=== PATIENT | female | born 1965 | race Caucasian/White ===

== ENCOUNTER 2019-02-06 06:00 | Outpatient (RCR) | payer MEDICARE, MEDICAID, SELFPAY | END 2019-03-08 00:01 | LOC: GPT 06:00 | PROVIDERS: Family Provider Family Medicine; Visit Provider Specialist | DX: M96.1 Postlaminectomy syndrome, not elsewhere classified (principal) | CPT/HCPCS: 97110 ×4; 97140 ×3; 97164; 97530 ×2; G0283 ×2 ==

== ENCOUNTER 2019-03-21 15:59 | Observation (INO) | payer MEDICARE, MEDICAID, SELFPAY ==
[2019-03-18 13:26] VITALS: BMI 31.6
[2019-03-21] VITALS (16 sets, daily range): BP systolic 112–148; BP diastolic 60–99; PULSE 70–96; RESP 12–20; TEMP 36.3–36.8; O2SAT 96–100
[2019-03-21] MEDS: sodium chloride 0.9% 1,000 ML 30 ML IV (08:26)
--- NOTE | 2019-03-21 08:31 | ANES.PREANES ---
Pre-Anesthetic Assessment Pre-Anesthetic Assessment: Height/Weight: Height 1.6 m Weight 81.193 kg Temp Resp BP Pulse Ox 97.4 F L 20 H 135/87 100 03/21/19 07:45 03/21/19 07:45 03/21/19 07:45 03/21/19 07:45 Preop Diagnosis: Pain pump dysftn Proposed Procedure: Operation Date: 03/21/19 09:50 Proposed Procedures p Pain Pump Removal(Not Applicable) - Oscar Lloyd MD Was Beta Kimmie taken within 24 hours: N/A Last intake: Intake Last Liquid Date 03/20/19 Last Liquid Time 23:30 Last Solid Date 03/20/19 Last Solid Time 18:00 Social: Social History: Tobacco Comment: quit 01/25 Pulmonary: Pulmonary: COPD Musc/skel: Musc/skel: Lower Back Pain Neuropsych: Neuropsych: Depression Anesthetic Plan: ASA status: III Anesthesia: MAC Meds/Allergies Current Medications: Current Medications Generic Name Dose Route Start Last Admin Trade Name Freq PRN Reason Stop Dose Admin Sodium Chloride 1,000 mls @ 30 ml s/hr 03/21/19 07:30 03/21/19 08:26 Sodium Chloride 0.9% IV 03/22/19 07:29 30 mls/hr .Q24H LEW Administration PFSH Anesthesia PFSH: Social History Smoking and tobacco status: former smoker Quit status (tobacco): has quit using tobacco Year quit tobacco: 2019 Alcohol intake: current Alcohol intake frequency: holidays/special occasions only Data Anesthesia Cardiac Studies: No Data to Display
--- NOTE | 2019-03-21 08:39 | ANES.PREANES ---
Pre-Anesthetic Assessment Pre-Anesthetic Assessment: Height/Weight: Height 1.6 m Weight 81.193 kg Temp Resp BP Pulse Ox 97.4 F L 20 H 135/87 100 03/21/19 07:45 03/21/19 07:45 03/21/19 07:45 03/21/19 07:45 Preop Diagnosis: Pain pump dysftn Proposed Procedure: Operation Date: 03/21/19 09:50 Proposed Procedures p Pain Pump Removal(Not Applicable) - Oscar Lloyd MD Last intake: Intake Last Liquid Date 03/20/19 Last Liquid Time 23:30 Last Solid Date 03/20/19 Last Solid Time 18:00 Social: Packs per day: 1.5 ppd45 years Comment: quit 3 days ago Airway: Dentition: False Pulmonary: Pulmonary: COPD Musc/skel: Musc/skel: Lower Back Pain Comments: left great than right radiculopathy Anesthetic Plan: ASA status: III Anesthesia: MAC Meds/Allergies Current Medications: Current Medications Generic Name Dose Route Start Last Admin Trade Name Freq PRN Reason Stop Dose Admin Sodium Chloride 1,000 mls @ 30 ml s/hr 03/21/19 07:30 03/21/19 08:26 Sodium Chloride 0.9% IV 03/22/19 07:29 30 mls/hr .Q24H LEW Administration PFSH Anesthesia PFSH: Social History Smoking and tobacco status: former smoker Quit status (tobacco): has quit using tobacco Year quit tobacco: 2019 Alcohol intake: current Alcohol intake frequency: holidays/special occasions only Data Anesthesia Cardiac Studies: No Data to Display
--- NOTE | 2019-03-21 11:25 | P.HPUD_ITS ---
H&P update H&P Update: DATE OF SURGERY/PROCEDURE: 03/21/19 DATE H&P PERFORMED: 10/26 H&P UPDATE INFORMATION: H&P completed within last 30 days and No changes to prior documentation PREOP DIAGNOSIS: Implanted intrathecal catrachita ter/pump PRIMARY INDICATION FOR PROCEDURE: pump failure PLANNED PROCEDURE: Operation Date: 03/21/19 09:50 Proposed Procedures Pain Pump/intrathecal catheter Removal Full H&P Medications/Allergies: Current Medications: Current Medications Generic Name Dose Route Start Last Admin Trade Name Freq PRN Reason Stop Dose Admin Sodium Chloride 1,000 mls @ 30 ml s/hr 03/21/19 07:30 03/21/19 08:26 Sodium Chloride 0.9% IV 03/22/19 07:29 30 mls/hr .Q24H LEW Administration Perinent History: Social History: Social History Smoking and tobacco status: former smoker Quit status (tobacco): has quit using tobacco Year quit tobacco: 2019 Alcohol intake: current Alcohol intake frequency: holidays/special occasions only
--- NOTE | 2019-03-21 12:11 | PM.OP2 ---
 Brief Operative Note: Date of procedure: 03/21/19 Pre-op diagnosis: Baclofen pump malfunction Post-op diagnosis: other (Same, with catheter disruption) Procedure Done: Removal of subcutaneous programmable pump and intrathecal catheter. Surgeon: Oscar Lloyd Estimated blood loss (mL): 10 Condition: stable Disposition: PACU Coding Level of Care Code Acute Novelty Maker for Lucia El
[2019-03-21] MEDS: neomycin-poly-bacitracin oint 28 gm 1 APPLIC TOPICAL (13:10)
--- NOTE | 2019-03-21 14:08 | SUR.PHASEI ---
1400 PT MOVED TO ISOLATION ROOM FOR HOLDING UNTIL ROOM AVAILABLE UPSTAIRS
[2019-03-21] MEDS: meperidine 50 mg/mL INJ 12.5 MG IVP ×2 (14:27→15:26)
--- NOTE | 2019-03-21 16:09 | P.PN_ITS ---
Subjective Subjective: Interval history: Doing OK. Vitals/I&O/Wt Last Vital Signs Temp 98 F 03/21/19 15:30 Pulse 71 03/21/19 15:30 Resp 18 03/21/19 15:30 BP 118/65 03/21/19 15:30 Pulse Ox 98 03/21/19 15:30 03/21/19 03/21/19 03/21/19 06:59 14:59 22:59 Intake Total 850 / 850 Output Total Balance 840 / 840 Physical Exam Const: GENERAL APPEARANCE: cooperative ORIENTATION/CONSCIOUSNESS: Yes awake Resp: COMMON NORMALS: normal respiratory effort EFFORT & INSPECTION: No stridor GI: COMMON NORMALS: soft to palpation PALPATION: Yes soft Neuro: COMMON NORMALS: moves all extremities Skin: WOUNDS: Yes surgical site (left abdomen and left lumbar paraspinal surgical site dressings intact. ) Details: drainage Details: serosanguineous (minimal) A&P Assessment and plan (1) Malfunction of intrathecal infusion pump: Doing well after baclofen pump and intrathecal catheter removal earlier today. Maintain bedrest overnight. Complete scheduled perioperative IV antibiotic doses. Increase HOB and activity in AM, as tolerated. Home when tolerating OOB. Status: Acute Code(s): T85.610A - Breakdown (mechanical) of cranial or spinal infusion catheter, initial encounter (2) Malposition of intrathecal infusion catheter: Status: Acute Code(s): T85.620A - Displacement of cranial or spinal infusion catheter, initial encounter (3) Cervical post-laminectomy syndrome: Status: Acute Code(s): M96.1 - Postlaminectomy syndrome, not elsewhere classified Attestations Medical Necessity Statement*: Patient is appropriate for in-hospital postop management after removal of an intrathecal catheter and subcutaneous pump. Coding Level of Care Code Acute Television Cameraman for Chg Fwd Exam Problem Focused Diagnoses Malfunction of intrathecal infusion pump T85.610A Malposition of intrathecal infusion catheter T85.620A Cervical post-laminectomy syndrome M96.1 Comment postop global visit
[2019-03-21] MEDS: ondansetron 2 mg/ML SDV 2 mL 4 MG IVP (16:31)
[2019-03-21] MEDS: baclofen 10 mg Tablet PO (17:30)
[2019-03-21] MEDS: lactated ringers 1,000 ML 90 ML IV (17:30)
[2019-03-21] MEDS: gabapentin 400 mg Capsule 800 MG PO ×2 (17:31→19:55)
[2019-03-21] MEDS: HYDROcodone-acetaminophen 5-325 mg Tablet PO ×2 (18:03→22:31)
[2019-03-21] MEDS: docusate sodium 100 mg Capsule PO (18:03)
[2019-03-21] MEDS: baclofen 10 mg Tablet 5 MG PO (19:55)
[2019-03-22] VITALS (7 sets, daily range): BP systolic 107–134; BP diastolic 70–79; PULSE 66–78; RESP 18–22; TEMP 36.5–36.7; O2SAT 96–98
[2019-03-22] MEDS: HYDROcodone-acetaminophen 5-325 mg Tablet PO ×3 (04:12→12:48)
[2019-03-22] MEDS: lactated ringers 1,000 ML 90 ML IV (04:15)
[2019-03-22] MEDS: pantoprazole DR 40 mg Tablet PO (08:16)
[2019-03-22] MEDS: escitalopram 10 mg Tablet PO (08:17)
[2019-03-22] MEDS: baclofen 10 mg Tablet 5 MG PO (08:17)
[2019-03-22] MEDS: gabapentin 400 mg Capsule 800 MG PO (08:17)
[2019-03-22] MEDS: topiramate 100 mg Tablet PO (08:17)
[2019-03-22] MEDS: docusate sodium 100 mg Capsule PO (08:17)
--- NOTE | 2019-03-22 15:07 | P.OP_ITS ---
Operative Report Date of procedure: 03/21/19 Procedure: DATE OF PROCEDURE: 03/21/2019 DATE OF DICTATION: 03/22/2019 PREOPERATIVE DIAGNOSES: 1. Cervical postlaminectomy syndrome. 2. Failure of implanted neurologic device (Medtronic subcutaneous programmable pump/intrathecal catheter system with suspected pump malfunction). POSTOPERATIVE DIAGNOSES: 1. Cervical postlaminectomy syndrome. 2. Failure of implanted neurologic device (Medtronic subcutaneous programmable pump/intrathecal catheter system with suspected pump malfunction). 3. Failure of implanted intrathecal catheter (catheter fracture). PROCEDURE PERFORMED: 1. Removal of subcutaneous programmable pump. 2. Removal of intrathecal catheter. SURGEON: Laura Lloyd M.D. ANESTHESIA: General. ESTIMATED BLOOD LOSS: 10 milliliters. INDICATIONS FOR PROCEDURE: The patient is a 54-year-old female with an intrathecal catheter and subcutaneous programmable pump. The device was implanted at an outside institution on June 15, 2017. She was referred by Dr. Hernandez due to concerns regarding device related complications and concerns t hat the risks of continued use of the device outweighed the benefits. The device had been programmed to a minimal output state, and the patient was placed on oral replacement baclofen. After radiographic evaluation of the device, options were reviewed, and the patient requested to proceed with surgical removal of the device components. She acknowledged understanding that complete removal of the catheter is not always feasible. DESCRIPTION OF PROCEDURE: After routine preoperative evaluation and informed consent were obtained, the patient was taken to the Operating Room and positioned supine on the operating table. Once adequate anesthesia was established, the patient was rotated into a right lateral decubitus position, supported by a beanbag. An axillary roll was positioned, and the upper extremities were supported. Prior left abdominal and left paraspinous lumbar incision sites were marked with a skin marker. The areas were scrubbed with Betadine and prepped widely with DuraPrep. Sterile towels and drapes were applied,and an [place] surgical barrier was placed. The proposed abdominal incision site was infiltrated with 1% Xylocaine with Epinephrine. A skin incision was made and carried down into the subcutaneous tissues. Self-retaining retractors were placed. The subcutaneous capsule containing the pump and pump/catheter interface was opened. No abnormal fluid collections were noted about the pump. The pump was delivered from the subcutaneous pocket. The pump - catheter interface was not intact, with catheter fracture evident just beyond the connection site. The pump was transferred to the back table in preparation for return to the manufacture and subsequent formal evaluation of suspected mechanical malfunction. The explanted device was a Medtronic SynchroMed II, 20 ml reservoir pump. The previously implanted intrathecal catheter demonstrated no spontaneous retrograde flow of fluid. The incision was copiously irrigated with sterile saline, and temporarily packed with an antibiotic soaked sponge. Attention was then turned to the lumbar site, which was infiltrated with 1% lidocaine with epinephrine. A skin incision was made and carried down into the subcutaneous tissues. The catheter, with attached anchor, was dissected free of the soft tissues. Beaumont sutures were released. Gentle traction delivered the intrathecal portion of the catheter intact. Gentle traction delivered a fractured short segment of catheter which was not in continuity with the distal abdominal catheter. Pursestring silk sutures were placed at the fascial penetration site of the intrathecal catheter, where a small amount of spinal fluid leakage was demonstrated following removal of the catheter. A Valsalva maneuver was initiated by Anesthesia personnel, with no persistent fluid leakage demonstrated following suture placement. The site was copiously irrigated with sterile saline. Gentle traction was applied to the retained distal catheter at the abdominal incision site. Adhesions prevented complete removal of the catheter, which fractured during removal, leaving an unspecified segment of the catheter within the subcutaneous space. (Records regarding initial catheter length were not immediately available at the time of surgery.) Adding the lengths of the explanted catheter fragments resulted in a total of approximately 86 cm of catheter that was removed. A Session Report dated 09/03/2017 was obtained. It indicated a total implanted catheter length of 106.7cm, suggesting 20.7 cm of retained catheter. Both incision sites were copiously irrigated with sterile saline and antibiotic irrigation. The retained fibrous capsule at the pump explant site was closed on itself with interrupted 2-0 Vicryl Plus sutures. The superficial fascia and deep dermis were closed at both incision sites with 2-0 Vicryl Plus simple interrupted sutures. Final skin closure was obtained at the abdominal site with running, subcuticular 3-0 Vicryl Plus. Interrupted 3-0 nylon was utilized at the lumbar site. Steri-Strips and a sterile dressing were applied at the abdominal site. Antibiotic ointment and a sterile dressing were applied at the lumbar site. The patient was rotated into the supine position and transferred onto the Recovery Room cart. The patient tolerated the procedure well. She was transferred to the postanesthesia care unit for routine management and monitoring, when deemed appropriate by Anesthesia personnel. COMPLICATIONS: There were no known complications. COUNTS: All sponge, needle and instrument counts were correct at the completion of the procedure.
--- NOTE | 2019-03-22 15:13 | PC.CHAP ---
Pastoral Care Encounter/Spiritual Assessment Type of Contact [] Declined operator automated process visit [] Patient/Family/Request visit [] Outpatient visit [x] Follow-up visit [] Physician referral [] Code/Alert [] Routine visit [] Staff referral [] Actively dying [x] Patient sleeping [] Family support [] [] Out of room [] Palliative care [] [] Receiving care in room [] Pre-surgical visit [] Trauma [] Long length of stay [] ICU visit [] Other: Relational/Emotional Strength [] Patient feels connected with others/family/visitors/staff [] Distress [] Loneliness/isolation [] Abandonment Spirituality of Patient [] Person of Kristel [] Attends Congregation of their Kristel [] Believes in Prayer [] Reads Bible or Worship materials [] There are Spiritual issues to be addressed Regional Guide Interventions [] Prayer [] Active listening [] Non-anxious presence [] Spiritual/emotional support [] Crisis/trauma care [] Spiritual counseling [] Bereavement support [] Provided bereavement packet [] Provided Bible/devotional materials [] Provided toy/stuffed animal, coloring book to patient or family member [] Completed spiritual assessment [] Provided Communion [] Anointing/[place] [] Salvation [] Other: Impact on Illness or Injury [] Angry [] Fearful [] Anxious [] Often cries [] Exhaustion [] Unable to work [] Unable to attend rastafari [] Unable to walk/stand [] Unable to read [] Unable to drive [] Unable to eat/drink [] Unable to sleep [] Unable to be with family [] Other: Summary patient asleep needs follow up d[place] yang Time spent with patient
--- NOTE | 2019-03-22 18:06 | P.DS_ITS ---
Discharge Providers Date of Admission: 03/21/19 15:59 Date of Discharge: Date of Discharge: March 22, 2019 Attending Provider at Admission: Oscar Lloyd MD Attending Provider at Discharge: Oscar Lloyd MD Primary Care Provider: Ted Willoughby DO Diagnoses at Discharge Discharge Diagnosis (1) Malfunction of intrathecal infusion pump: Status: Acute Problem details: Patient is doing well after removal of subcutaneous programmable pump and intrathecal catheter yesterday. She has tolerated diet and up OOB today. Plan discharge home today. (2) Malposition of intrathecal infusion catheter: Status: Acute (3) Cervical post-laminectomy syndrome: Status: Acute Reason for Visit Reason for Visit: Reason For Visit: Presence of Intrathecal Baclofen Pump Brief History: The patient is a 54-year-old female with an intrathecal catheter and subcutaneous programmable pump. The device was implanted at an outside institution on June 15, 2017. She was referred by Dr. Hernandez due to concerns regarding device related complications and concerns that the risks of continued use of the device outweighed the benefits. The device had been programmed to a minimal output state, and the patient was placed on oral replacement baclofen. After radiographic evaluation of the device, options were reviewed, and the patient requested to proceed with surgical removal of the device components. She acknowledged understanding that complete removal of the catheter is not always feasible. Hospital Course Hospital Course: The patient underwent removal of subcutaneous, programmable pump and intrathecal catheter on 03/21/2019. A short segment of the catheter was retained within the left lateral abdominal subcutaneous space due to catheter fracture during attempted removal. The retained catheter segment was estimated at 20.7 cm based on implantation records and measurement of explanted catheter fragments. She had minimal CSF leakage at the lumbodorsal fascia catheter exit site following catheter removal. Following silk pursestring suture placement, no leakage was demonstrated even with Anesthesia administered Valsalva. She tolerated the procedure well. She was maintained flat in bed at bedrest overnight. HOB was gradually elevated, and she was allowed up OOB after noon on POD#1. She completed perioperative intravenous antibiotic doses. She was voiding, tolerating regular diet, and ambulatory prior to discharge home on postoperative day #1. She had no evidence of postop CSF leakage at the lumbar incision site. Physical Exam Const: COMMON NORMALS: no apparent distress GENERAL APPEARANCE: cooperative and comfortable Neck/C-Spine: COMMON NORMALS: supple Resp: COMMON NORMALS: normal respiratory effort EFFORT & INSPECTION: Yes able to speak in complete sentences and No stridor GI: GI image (female): 1. surgical incision Back/Pelvis: BACK IMAGE (FEMALE): 1. surgical incision Neuro: COMMON NORMALS: moves all extremities GAIT: Yes other (ambulates unassisted) Psych: COMMON NORMALS: speech normal ATTITUDE: Yes calm and Yes engaged SPEECH: Yes normal speech MOOD & AFFECT: Yes euthymic mood INSIGHT: insight good JUDGEMENT: judgment good Skin: WOUNDS: Yes surgical site (surgical site dressings clean/dry/intact) Discharge Data Data Completed and Pending: Completed Studies During Hospitalization Category Date Time Status Pathology: Surgic al [PTH] Routine Pth 03/21/19 14:08 Completed Vitals: Last Vital Signs Temp 97.9 F 03/22/19 12:50 Pulse 78 03/22/19 11:02 Resp 22 H 03/22/19 12:50 BP 134/79 03/22/19 11:02 Pulse Ox 97 03/22/19 12:50 Discharge Plan Discharge Patient Disposition: Home, Self-Care Condition: Stable Prescriptions: New hydrocodone-acetaminophen 5-325 mg Tablet 1 - 2 tab PO Q4H PRN (Reason: Moderate To Severe Pain) Qty: 40 RF: 0 Continued gabapentin 800 mg tablet 800 mg PO QID RF: 0 ibuprofen 200 mg capsule 400 mg PO QID PRN (Reason: Pain) RF: 0 albuterol sulfate 2.5 mg /3 mL (0.083 %) solution for nebulization 2.5 mg INHALATION Q6H RF: 0 fluticasone propion-salmeterol [Advair Diskus] 250-50 mcg/dose blister with device 1 inh INHALATION BID RF: 0 baclofen 10 mg tablet 5 mg PO QID RF: 0 escitalopram oxalate [Lexapro] 10 mg tablet 10 mg PO DAILY RF: 0 topiramate [Topamax] 100 mg tablet 100 mg PO DAILY RF: 0 acetaminophen [Tylenol 8 Hour] 650 mg tablet extended release 650 mg PO .every 4 hours PRN (Reason: Dyspnea) RF: 0 Premarin 0.625 mg/gram cream 0.625 mg VAGINAL .twice a week RF: 0 omeprazole 20 mg Capsule,Delayed Release(Dr/Ec) 20 mg PO DAILY RF: 0 No Action tramadol 50 mg tablet 50 mg PO TID PRN (Reason: pain) Qty: 50 RF: 0 Discharge Orders: Discharge Order (Routine); Ordered 03/22/19 Ordered By: Oscar Lloyd Referrals: Oscar Lloyd MD [Physician] - 2 weeks (Please see Dr Lloyd on Apr 05 at 2:00) Patient Instructions: Hydrocodone/Acetaminophen (By mouth), Cervical Spinal Stenosis (DC) Activity Restrictions/Additional Instructions: Activity - No driving until office followup visit - No lifting/pushing/pulling over 10 pounds - Avoid twisting or bending - Walking is encouraged - Home exercise per physical therapist - You may engage in sexual intercourse at any time as long as it is comfortable for you - Check with your doctor before returning to work. Notify your doctor if you develop: - temperature of 101.5 degrees F. or higher - redness or swelling of the incision - Foul drainage - increasing pain - increasing numbness or tingling in the arms or legs - New or increasing problems with vision, balance, memory, speaking, nausea or vomiting Hygiene: - Showering is okay - No tub baths or soaking Other: Remove outer bandage 3 days after surgery. If you have paper strips, leave in place until they fall off on their own. If you have stitches, keep your incision dry until the stitches are removed. Your doctor's office is available to answer any questions from 7 AM to 5:00 PM, Thursday through at [phone]. After hours, go to the emergency room at [facility] or call 911 for assistance. Discharge Date/Time: 03/22/19 15:00 Discharge Attestations Time Spent in Discharge Care*: other (postop global) Quality Metrics Clinical Quality Measures During this hospital stay, did patient experience: None Coding Level of Care Code Acute Photography And Prints Curator for Chg Fwd Exam Problem Focused Diagnoses Malfunction of intrathecal infusion pump T85.610A Malposition of intrathecal infusion catheter T85.620A Cervical post-laminectomy syndrome M96.1 Comment postop global
== END 2019-03-22 15:00 | disposition home or self-care (01) ==
LOC: MEDSURG 16:00
PROVIDERS: Admitting Provider Specialist; Family Provider Family Medicine; PCP Family Medicine; Visit Provider Specialist
PROC: (CPT 62365; principal; 2019-03-21 09:50)
DX: T85.610A Breakdown (mechanical) of cranial or spinal infusion catheter, initial encounter (principal); T85.620A Displacement of cranial or spinal infusion catheter, initial encounter; M96.1 Postlaminectomy syndrome, not elsewhere classified; F17.210 Nicotine dependence, cigarettes, uncomplicated; Z82.49 Family history of ischemic heart disease and other diseases of the circulatory system; Z83.3 Family history of diabetes mellitus; Z79.1 Long term (current) use of non-steroidal anti-inflammatories (NSAID); Z79.891 Long term (current) use of opiate analgesic; J44.9 Chronic obstructive pulmonary disease, unspecified
CPT/HCPCS: 62365; 12345; 88300; 94640; 96361; 96365; 96375; G0378; J0690; J2001; J2175; J2405; J2704; J3010; J3490; J7030

== ENCOUNTER → 2019-05-04 14:59 | Outpatient (BNVA) | payer MEDICARE, MEDICAID, SELFPAY | PROVIDERS: Family Provider Family Medicine; PCP Family Medicine; Visit Provider Specialist | DX: G62.9 Polyneuropathy, unspecified (principal); M54.12 Radiculopathy, cervical region; F17.210 Nicotine dependence, cigarettes, uncomplicated | CPT/HCPCS: 99214 ==

== ENCOUNTER 2019-05-09 06:00 | Outpatient (RCR) | payer MEDICARE, MEDICAID, SELFPAY | END 2019-06-07 23:59 | disposition home or self-care (01) | LOC: GPT 06:00 | PROVIDERS: Family Provider Family Medicine; PCP Family Medicine; Referring Provider Family Medicine; Visit Provider Family Medicine | DX: G89.4 Chronic pain syndrome (principal); M96.1 Postlaminectomy syndrome, not elsewhere classified | CPT/HCPCS: 97110; 97140; 97162; 97530; G0283 ==

== ENCOUNTER → 2019-05-12 08:19 | Outpatient (BNVA) | payer MEDICARE, MEDICAID, SELFPAY | PROVIDERS: Family Provider Family Medicine; PCP Family Medicine; Visit Provider Specialist | DX: M79.605 Pain in left leg (principal); M79.604 Pain in right leg; F17.210 Nicotine dependence, cigarettes, uncomplicated | CPT/HCPCS: 95909 ==

== ENCOUNTER 2019-05-24 06:00 | Outpatient (RCR) | payer MEDICARE, MEDICAID, SELFPAY | END 2019-06-07 23:59 | disposition home or self-care (01) | LOC: GOT 06:00 | PROVIDERS: Family Provider Family Medicine; PCP Family Medicine; Referring Provider Nurse Practitioner Family; Visit Provider Nurse Practitioner Family | DX: G89.4 Chronic pain syndrome (principal); M96.1 Postlaminectomy syndrome, not elsewhere classified | CPT/HCPCS: 97167 ==

== ENCOUNTER 2019-06-08 06:00 | Outpatient (RCR) | payer MEDICARE, MEDICAID, SELFPAY | END 2019-07-07 23:59 | disposition home or self-care (01) | LOC: GPT 06:00 | PROVIDERS: Family Provider Family Medicine; PCP Family Medicine; Referring Provider Family Medicine; Visit Provider Family Medicine | DX: G62.9 Polyneuropathy, unspecified (principal) | CPT/HCPCS: 97110; 97140; 97164; 97530; G0283 ==

== ENCOUNTER 2019-06-08 06:00 | Outpatient (RCR) | payer MEDICARE, MEDICAID, SELFPAY | END 2019-07-07 23:59 | disposition home or self-care (01) | LOC: GOT 06:00 | PROVIDERS: Family Provider Family Medicine; PCP Family Medicine; Referring Provider Nurse Practitioner Family; Visit Provider Nurse Practitioner Family | DX: M76.822 Posterior tibial tendinitis, left leg (principal) | CPT/HCPCS: 97110; 97140; G0283 ==

== ENCOUNTER → 2019-06-15 08:28 | Outpatient (BNVA) | payer MEDICARE, MEDICAID, SELFPAY | PROVIDERS: Family Provider Family Medicine; PCP Family Medicine; Referring Provider Specialist; Visit Provider Podiatrist Foot & Ankle Surgery | DX: M25.572 Pain in left ankle and joints of left foot (principal); S82.892A Other fracture of left lower leg, initial encounter for closed fracture; X58.XXXA Exposure to other specified factors, initial encounter; M21.42 Flat foot [pes planus] (acquired), left foot; M76.822 Posterior tibial tendinitis, left leg; N39.0 Urinary tract infection, site not specified | CPT/HCPCS: 73610; 80053; 81000; 81003; 87077; 87086; 87186; L1902 ==

== ENCOUNTER 2019-06-15 11:08 | Outpatient (CLI) | payer MEDICARE, MEDICAID, SELFPAY | END 2019-06-15 11:09 | disposition home or self-care (01) | LOC: SPT 11:09 | PROVIDERS: Family Provider Family Medicine; PCP Family Medicine; Visit Provider Podiatrist Foot & Ankle Surgery | DX: M76.822 Posterior tibial tendinitis, left leg (principal) | CPT/HCPCS: 80053; 81000; 81003; 87077; 87086; 87186; L1902 ==

== ENCOUNTER 2019-06-23 08:52 | Outpatient (CLI) | payer MEDICARE, MEDICAID, SELFPAY ==
--- NOTE | 2019-06-23 08:59 | IR_ITS ---
WS: [id number] CERVICAL MYELOGRAM HISTORY: cervical pain COMPARISON: None available. FLUOROSCOPY TIME: 1.6 minutes. Procedure, risks and complications were explained to the patient. Risks including bleeding, infection , headaches, allergic reaction and seizures. Consent has been obtained. With the patient in prone position the skin over the lumbar region is cleansed with ChloraPrep and an esthetized with lidocaine. 22-gauge spinal needle is inserted into the thecal sac at the appropriate level determined by fluoroscopy. Omnipaque 300; 12 ml is injected slowly under fluoroscopy with no co mplications. Needle bevel is perpendicular to the longitudinal fibers of the dura. Stylet is reinsert ed prior to removal of the needle. Patient tolerated the procedure well. Patient will proceed to CT f or further evaluation. Uncomplicated injection into the thecal sac. Straightening and reversal normal cervical lordosis centered at C5-C7. Interbody spacers at C5-6 and C6-7. No lucency around the hardware. Anterior cervical plate abuts and is eroding into the anterior inferior endplate of C4. Due to the prior study. C3 anterolisthesis by 1.9 mm. Increases to 2.8 mm during flexion and decreases to 1.0 mm during exten dominic. No fracture. Prior cholecystectomy. IR/[place] myel[place] cervical [id number] IMPRESSION: 1. Straightening and slight reversal normal cervical lordosis centered at C4-5 . 2. Prior cervical fusion with interbody grafting at C5-C7. No change in appear ance of the hardware or fusion. 3. Very mild instability of the C3 vertebral body with flexion and extension.
--- NOTE | 2019-06-23 08:59 | CT_ITS ---
WS: [id number] CT CERVICAL MYELOGRAM HISTORY: cervical pain Technique: All CT scans at [facility] use at least one of these dose optimization techniq ues: automated exposure control; mA and/or kV adjustment per patient size (includes targeted exams wh ere dose is matched to clinical indication); or iterative reconstruction. DLP: 690.2 mGy.cm COMPARISON: 10/19/2018 Good opacification of thecal sac with contrast. Prior anterior cervical fusion extends from C5 through C7. Interbody grafts at C5-6 and C6-7. There i s mild subsidence of the graft, greatest involving the C6-7 grafts. Similar to the prior study. No samantha cency around the hardware. No hardware fracture. The anterior superior fusion plate abuts the C4 vert ebral body. Moderate disc space narrowing at C4-5. C3 anterolisthesis by 2 mm is unchanged. C1-C2: Normal. C2-C3: Moderate LEFT facet joint arthritis with mild LEFT foraminal narrowing. C3-C4: Moderate to severe LEFT facet joint arthritis similar to the prior study. Mild annular disc bu lging and osteophytic ridging of the vertebral body. Mild central stenosis with moderate to severe LE FT foraminal stenosis. Similar to the prior study. C4-C5: LEFT facet joint arthritis. Mild osteophytic ridging with mild encroachment upon the ventral t hecal sac. Slightly greater stenosis centrally with mild LEFT foraminal stenosis. C5-C6: Osteophytic ridging with encroachment and contact on the ventral cord. Mild central stenosis w ith moderate LEFT and mild RIGHT foraminal stenosis. C6-C7: Diffuse osteophytic ridging with disc osteophyte contacting the ventral thecal sac. Mild centr al stenosis with moderate LEFT and mild RIGHT foraminal stenosis. C7-T1: Mild osteophytic ridging. Mild LEFT foraminal stenosis due to osteophyte disease. Paravertebral soft tissues are normal. CT/CT cervical spine w con [id number] IMPRESSION: 1. Prior anterior cervical fusion with interbody graft fusion at C5-6 and C6-7 . No interval change. No bony bridging across the fusion. 2. Anterior fusion plate abuts the C4 vertebral body. 3. Mild subsidence of the C6-7 disc is unchanged. 4. Moderate to severe LEFT foraminal stenosis at C3-4 unchanged. 5. Mild central stenosis and LEFT foraminal stenosis at C4-5. Central stenosis has increased since the prior study. 6. Moderate LEFT foraminal stenosis at C5-6 with mild central and RIGHT forami nal stenosis. 7. Moderate LEFT foraminal stenosis at C6-7 with mild central and RIGHT forami nal stenosis.
[2019-06-23] MEDS: iohexol 300 mg/mL 50 mL Btl IV (10:37)
== END 2019-06-23 08:53 | disposition home or self-care (01) ==
PROVIDERS: Family Provider Family Medicine; PCP Family Medicine; Visit Provider Specialist
DX: M54.2 Cervicalgia (principal); M43.22 Fusion of spine, cervical region; M48.02 Spinal stenosis, cervical region
CPT/HCPCS: 62302; 72040; 72126

== ENCOUNTER → 2019-07-06 13:03 | Outpatient (BNVA) | payer MEDICARE, MEDICAID, SELFPAY | PROVIDERS: Family Provider Family Medicine; PCP Family Medicine; Referring Provider Specialist; Visit Provider Anesthesiology Pain Medicine | DX: M54.2 Cervicalgia (principal); M79.18 Myalgia, other site; F17.210 Nicotine dependence, cigarettes, uncomplicated | CPT/HCPCS: 20553; 99204; J1030; J3490 ==

== ENCOUNTER 2019-07-08 06:00 | Outpatient (RCR) | payer MEDICARE, MEDICAID, SELFPAY | END 2019-08-07 23:59 | disposition home or self-care (01) | LOC: GPT 06:00 | PROVIDERS: PCP Family Medicine; Referring Provider Family Medicine; Visit Provider Family Medicine | DX: G62.9 Polyneuropathy, unspecified (principal) | CPT/HCPCS: 97032; 97110; 97112; 97140; 97530; G0283 ==

== ENCOUNTER → 2019-07-22 10:20 | Outpatient (BNVA) | payer MEDICARE, MEDICAID, SELFPAY | PROVIDERS: Family Provider Family Medicine; PCP Family Medicine; Visit Provider Anesthesiology Pain Medicine | DX: M50.020 Cervical disc disorder with myelopathy, mid-cervical region, unspecified level (principal); F17.210 Nicotine dependence, cigarettes, uncomplicated; Z79.891 Long term (current) use of opiate analgesic | CPT/HCPCS: 62321; J1100; J2001 ==

== ENCOUNTER 2019-08-04 13:28 | Outpatient (CLI) | payer MEDICARE, MEDICAID, SELFPAY ==
--- NOTE | 2019-08-04 13:47 | CT_ITS ---
WS: [id number] CT LUNG CANCER SCREENING DLP: 82.12 mGy.cm DIvol: 2.56 mGy CLINICAL INFORMATION SCREENING VISIT: Baseline COMPARISON: None available. FINDINGS Diagnostic quality: Satisfactory Comments: None. Lung Nodules: Subsegmental nodule posterior RIGHT lung apex measures 4 mm, image 35 of series 3. Ther e is an additional subsolid, groundglass nodule measuring 4 mm at the LEFT apex, image 45 of series 3 . No endobronchial lesions. Benign granuloma at the lingula. Lungs: No pneumonia. Heart: Normal size heart. Other findings: Benign partially calcified lymph nodes at the LEFT hilum. Normal size aorta and pulmo nary artery. Small hiatal hernia. Hepatic steatosis. CT/CT lung screening [id number] IMPRESSION: LUNG-RADS: 2-Benign Appearance or Behavior FOLLOW UP: 12 Month: Continue annual screening with LDCT
== END 2019-08-04 13:29 | disposition home or self-care (01) ==
LOC: RAD 13:34
PROVIDERS: PCP Family Medicine; Visit Provider Nurse Practitioner Family
DX: Z12.2 Encounter for screening for malignant neoplasm of respiratory organs (principal); Z87.891 Personal history of nicotine dependence; K44.9 Diaphragmatic hernia without obstruction or gangrene; K76.0 Fatty (change of) liver, not elsewhere classified
CPT/HCPCS: G0297

== ENCOUNTER → 2019-08-11 10:06 | Outpatient (BNVA) | payer BC, MEDICAID, SELFPAY | PROVIDERS: PCP Family Medicine; Visit Provider Anesthesiology Pain Medicine | DX: M54.2 Cervicalgia (principal); M62.830 Muscle spasm of back; F17.210 Nicotine dependence, cigarettes, uncomplicated; Z79.891 Long term (current) use of opiate analgesic | CPT/HCPCS: 99213; 99214 ==

== ENCOUNTER → 2019-08-16 14:21 | Outpatient (BNVA) | payer BC, MEDICAID, SELFPAY | PROVIDERS: PCP Family Medicine; Visit Provider Anesthesiology Pain Medicine | DX: M50.020 Cervical disc disorder with myelopathy, mid-cervical region, unspecified level (principal); F17.210 Nicotine dependence, cigarettes, uncomplicated; Z79.891 Long term (current) use of opiate analgesic | CPT/HCPCS: 62321; J1100; J2001 ==

== ENCOUNTER → 2019-08-19 10:26 | Outpatient (BNVA) | payer BC, MEDICAID, SELFPAY | PROVIDERS: PCP Family Medicine; Visit Provider Psychiatry & Neurology Psychiatry | DX: F33.9 Major depressive disorder, recurrent, unspecified (principal); F34.9 Persistent mood [affective] disorder, unspecified; F43.29 Adjustment disorder with other symptoms; F11.23 Opioid dependence with withdrawal; F12.20 Cannabis dependence, uncomplicated | CPT/HCPCS: 99205 ==

== ENCOUNTER 2019-08-23 09:21 | Outpatient (CLI) | payer MEDICARE, MEDICAID, SELFPAY ==
--- NOTE | 2019-08-23 09:27 | US_ITS ---
WS: [id number] Right breast ultrasound, 08/23/2019 Clinical Data: RT BREAST NODULE Comparison: Right breast ultrasound, 07/05/2015. Findings: There were no cysts or masses in the right upper quadrant of the right breast at site of the patient' s nodule. Only normal breast tissue could be seen. US/US breast RT limited* [id number] Impression: Negative right breast ultrasound BIRADS: 1-Negative FOLLOW UP: 1 Year Follow-up
--- NOTE | 2019-08-23 10:00 | MM_ITS ---
WS: [id number] Bilateral diagnostic digital mammogram, 08/23/2019 Clinical Data: nodule Comparison: 11/10/2017, 06/11/2015. Findings: There is a marker in the upper outer quadrant right breast. However no cysts, masses or abnormal calc ifications are seen. The breast parenchymal pattern shows fat replacement. The left breast is normal. There is no change from the prior mammogram. MM/[place] [id number] Impression: Negative bilateral mammograms unchanged. BIRADS: 1-Negative FOLLOW UP: 1 Year Follow-up The CAD amusement or recreation card checker was used.
== END 2019-08-23 09:22 | disposition home or self-care (01) ==
LOC: RADSHAW 09:25
PROVIDERS: PCP Family Medicine; Visit Provider Nurse Practitioner Family
DX: Z80.3 Family history of malignant neoplasm of breast (principal); N63.11 Unspecified lump in the right breast, upper outer quadrant
CPT/HCPCS: 76642; 77066

== ENCOUNTER → 2019-09-05 08:54 | Outpatient (BNVA) | payer MEDICARE, MEDICAID, SELFPAY | PROVIDERS: PCP Family Medicine; Visit Provider Anesthesiology Pain Medicine | DX: M54.12 Radiculopathy, cervical region (principal); M47.812 Spondylosis without myelopathy or radiculopathy, cervical region; M96.1 Postlaminectomy syndrome, not elsewhere classified; M79.18 Myalgia, other site; T85.610A Breakdown (mechanical) of cranial or spinal infusion catheter, initial encounter; X58.XXXA Exposure to other specified factors, initial encounter; Z98.1 Arthrodesis status; Z79.891 Long term (current) use of opiate analgesic | CPT/HCPCS: 20553; 99213; J1030; J3490 ==

== ENCOUNTER → 2019-09-15 07:58 | Outpatient (BNVA) | payer MEDICARE, MEDICAID, SELFPAY | PROVIDERS: PCP Family Medicine; Visit Provider Nurse Practitioner Psychiatric/Mental Health | DX: F33.9 Major depressive disorder, recurrent, unspecified (principal); Z68.30 Body mass index [BMI] 30.0-30.9, adult; F43.29 Adjustment disorder with other symptoms | CPT/HCPCS: 80053; 80061; 84443; 99213 ==

== ENCOUNTER 2019-10-04 10:33 | Outpatient (CLI) | payer MEDICARE, MEDICAID, SELFPAY ==
--- NOTE | 2019-10-04 11:30 | XR_ITS ---
WS: [id number] DEXA (DUAL ENERGY X-RAY ABSORPTIOMETRY) Bone mineral density was performed using a netTALK machine. HISTORY: post menopausal COMPARISON: None available. Lumbar spine BMD (L1-L4): 1.040 g/cm2 T score: -1.2 Z score: -0.7 Total hip BMD: Left: 1.082 g/cm2. T score: 0.6 Z score: 1.0 Right: 1.090 g/cm2. T score: 0.7 Z score: 1.1 10 year probability of a major osteoporotic fracture is 10%. XR/XR DEXA axial skeleton* [id number] IMPRESSION: Osteopenia based upon the WHO classification for females.
== END 2019-10-04 10:34 | disposition home or self-care (01) ==
PROVIDERS: Family Provider Family Medicine; PCP Family Medicine; Visit Provider Nurse Practitioner Family
DX: M54.12 Radiculopathy, cervical region (principal); M47.812 Spondylosis without myelopathy or radiculopathy, cervical region; M96.1 Postlaminectomy syndrome, not elsewhere classified; T85.610A Breakdown (mechanical) of cranial or spinal infusion catheter, initial encounter; X58.XXXA Exposure to other specified factors, initial encounter; F17.210 Nicotine dependence, cigarettes, uncomplicated; Z98.1 Arthrodesis status; Z78.0 Asymptomatic menopausal state
CPT/HCPCS: 77080; 99214

== ENCOUNTER → 2019-10-07 10:00 | Outpatient (BNVA) | payer BC, MEDICAID, SELFPAY | PROVIDERS: Family Provider Family Medicine; PCP Family Medicine | DX: Z20.828 Contact with and (suspected) exposure to other viral communicable diseases (principal); J45.20 Mild intermittent asthma, uncomplicated; F17.200 Nicotine dependence, unspecified, uncomplicated | CPT/HCPCS: 87635 ==

== ENCOUNTER → 2019-10-14 13:19 | Outpatient (BNVA) | payer BC, MEDICAID, SELFPAY | PROVIDERS: PCP Family Medicine; Visit Provider Anesthesiology Pain Medicine | DX: M47.812 Spondylosis without myelopathy or radiculopathy, cervical region (principal); F17.210 Nicotine dependence, cigarettes, uncomplicated | CPT/HCPCS: 64490; 64491; 64492; J3490 ==

== ENCOUNTER → 2019-11-10 07:19 | Outpatient (BNVA) | payer BC, MEDICAID, SELFPAY | PROVIDERS: PCP Family Medicine; Visit Provider Nurse Practitioner Psychiatric/Mental Health | DX: F33.9 Major depressive disorder, recurrent, unspecified (principal); F43.29 Adjustment disorder with other symptoms | CPT/HCPCS: 99212 ==

== ENCOUNTER → 2019-11-21 13:48 | Outpatient (BNVA) | payer BC, MEDICAID, SELFPAY | PROVIDERS: PCP Family Medicine; Visit Provider Anesthesiology Pain Medicine | DX: M47.812 Spondylosis without myelopathy or radiculopathy, cervical region (principal) | CPT/HCPCS: 64490; 64491; 64492; J3490 ==

== ENCOUNTER → 2019-12-12 09:47 | Outpatient (BNVA) | payer BC, MEDICAID, SELFPAY | PROVIDERS: PCP Family Medicine; Visit Provider Anesthesiology Pain Medicine | DX: G89.29 Other chronic pain (principal); M47.812 Spondylosis without myelopathy or radiculopathy, cervical region; M50.020 Cervical disc disorder with myelopathy, mid-cervical region, unspecified level; M43.12 Spondylolisthesis, cervical region; M54.12 Radiculopathy, cervical region; M54.5 Low back pain; M96.1 Postlaminectomy syndrome, not elsewhere classified; T85.610A Breakdown (mechanical) of cranial or spinal infusion catheter, initial encounter; X58.XXXA Exposure to other specified factors, initial encounter; G62.9 Polyneuropathy, unspecified; Z98.1 Arthrodesis status; F17.210 Nicotine dependence, cigarettes, uncomplicated | CPT/HCPCS: 99213; 99214 ==

== ENCOUNTER → 2019-12-26 13:03 | Outpatient (BNVA) | payer MEDICARE, MEDICAID, SELFPAY | PROVIDERS: PCP Family Medicine; Visit Provider Anesthesiology Pain Medicine | DX: M47.812 Spondylosis without myelopathy or radiculopathy, cervical region (principal) | CPT/HCPCS: 64633; 64634; J1030 ==

== ENCOUNTER → 2020-01-09 08:41 | Outpatient (BNVA) | payer MEDICARE, MEDICAID, SELFPAY | PROVIDERS: PCP Family Medicine; Visit Provider Anesthesiology Pain Medicine | DX: G89.29 Other chronic pain (principal); M47.812 Spondylosis without myelopathy or radiculopathy, cervical region; M50.020 Cervical disc disorder with myelopathy, mid-cervical region, unspecified level; M43.12 Spondylolisthesis, cervical region; M54.12 Radiculopathy, cervical region; G62.9 Polyneuropathy, unspecified; M96.1 Postlaminectomy syndrome, not elsewhere classified; T85.610A Breakdown (mechanical) of cranial or spinal infusion catheter, initial encounter; X58.XXXA Exposure to other specified factors, initial encounter; F17.210 Nicotine dependence, cigarettes, uncomplicated; Z98.1 Arthrodesis status | CPT/HCPCS: 99213 ==

== ENCOUNTER → 2020-01-12 07:40 | Outpatient (BNVA) | payer BC, MEDICAID, SELFPAY | PROVIDERS: PCP Family Medicine; Visit Provider Nurse Practitioner Psychiatric/Mental Health | DX: F33.9 Major depressive disorder, recurrent, unspecified (principal); F43.29 Adjustment disorder with other symptoms | CPT/HCPCS: 99212 ==

== ENCOUNTER → 2020-02-06 11:20 | Outpatient (BNVA) | payer MEDICARE, MEDICAID, SELFPAY | PROVIDERS: PCP Family Medicine; Visit Provider Nurse Practitioner Family | DX: K59.00 Constipation, unspecified (principal) | CPT/HCPCS: 74018 ==

== ENCOUNTER 2020-02-06 13:48 | Emergency (ER) | payer MEDICARE, MEDICAID, SELFPAY ==
[2020-02-06 14:13] VITALS: BP 119/86; PULSE 65; RESP 14; TEMP 36.6; O2SAT 98
[2020-02-06 15:00] VITALS: BP 168/86; PULSE 59; RESP 16; O2SAT 92
[2020-02-06 16:28] VITALS: BMI 29.2
[2020-02-06 17:15] LABS: Basophils % 0.5 %; Eosinophils # 0.1 10^3/uL (0.0-0.8); Eosinophils % 1.6 %; Hematocrit 41.1 % (37.0-47.0); Hemoglobin 13.6 g/dL (11.5-15.3); Lymphocytes # 2.7 10^3/uL (0.8-4.8); Lymphocytes % 46.4 %; Mean Corpuscular HGB Conc 33.1 g/dL (30.0-36.0); Mean Corpuscular Hemoglobin 32.4 pg (28.0-34.0); Mean Corpuscular Volume 97.9 fL (81-99); Mean Platelet Volume 10.5 fL (7.4-10.4); Monocytes # 0.4 10^3/uL (0.2-0.9); Monocytes % 6.8 %; Neutrophils # 2.53 10^3/uL (1.8-7.7); Neutrophils % 44.3 %; Nucleated Red Blood Cells % 0 %; Platelet Count 211 10^3/cmm (130-400); Red Cell Distribution Width 12.1 % (12.1-15.1); White Blood Count 5.7 10^3/uL (4.0-10.0)
[2020-02-06] MEDS: morphine 4 mg/mL SDV 1 mL 2 MG IVP (17:20)
[2020-02-06] MEDS: ketorolac 30 mg/mL INJ IVP (17:20)
[2020-02-06] MEDS: orphenadrine 30 mg/mL Inj 2 mL 60 MG IVP (17:20)
[2020-02-06 18:03] LABS: Alanine Aminotransferase 27 U/L (0-33); Albumin Level 4.7 g/dL (3.5-5.2); Alkaline Phosphatase 87 IU/L (35-105); Anion Gap 12.8 (5-19); Aspartate Amino Transferase 19 U/L (0-32); Blood Urea Nitrogen 10 mg/dL (6-20); Calcium 9.5 mg/dL (8.5-10.5); Carbon Dioxide 25 mmol/L (22-29); Chloride 107 mmol/L (98-107); Creatinine Clr Calc Pharmacy 76.9879; Globulin 2.4 g/dL (1.3-4.6); Glomerular Filtration Rate 74.5 mL/min (90-130); Glucose 96 mg/dL (65-115); Lipase 35 U/L (13-60); Osmolality Calculated 291 mOsm/kg (285-295); Potassium 3.8 mmol/L (3.5-5.1); Sodium 141 mmol/L (136-145); Total Bilirubin 0.3 mg/dL (0.15-1.2); Total Protein 7.1 g/dL (6.6-8.7)
[2020-02-06 18:05] LABS: Add Urine Microscopic? NO
--- NOTE | 2020-02-06 18:10 | ED_ITS ---
Documented by User: Fortunato Sanchez DO 02/07/20 06:52 HPI - Abdominal Pain General: Chief Complaint: Abdominal Pain Stated Complaint: phy ref/abd pain Time Seen by Provider: 02/06/20 16:46 History of Present Illness: HPI narrative: 54-year-old female comes in complaining of abdominal pain. For last 3 days she has had right flank pain radiates around into the groin. She is not had any fevers or chills denies dysuria urgency or frequency she has had some loose stools her states that is chronic since her gallbladder is out. She denies any vomiting. Pain does not radiate into her legs she notices quite a bit worse when she stands and walks or she bends or moves it is relieved by lying on her left side. She is not had any skin rash. MD elicited complaint: flank pain Onset (ago): day(s) Pain Consistency: constant Location: L flank Severity: moderate Quality: sharp Radiation: suprapubic Migration to: no migration Exacerbating factors: nothing Relieving factors: nothing Associated Symptoms: Reports anorexia and GI cramping; Denies belching, bloating, change in bowel habits, change in stool character, chills, coffee ground emesis, constipation, diarrhea, dyspepsia, dysuria, excessive flatus, fever(s), heartburn, hematochezia, hematuria, hematemesis, fecal incontinence, loose stools, melena, nausea, poor appetite, syncope and vomiting Review of Systems Const: Denies: fever(s) or chills ENMT: Denies: throat pain, ear or mastoid pain, nasal discharge or nasal congestion Card: Denies: syncope Resp: Denies: dyspnea, productive cough or non-productive cough GI: Reports: GI cramping; Denies: vomiting, hematemesis, coffee ground emesis, heartburn, diarrhea, constipation, bloating, belching, excessive flatus, fecal incontinence, change in bowel habits, change in stool character, hematochezia or melena : Denies: hematuria Skin/Breast: Denies: rash or pruritus PFS ED PFSH: Medical History Anxiety and depression Asthma Cervical disc disorder with myelopathy of mid-cervical region Cervical post-laminectomy syndrome Contact with and (suspected) exposure to other viral communicable diseases COPD (chronic obstructive pulmonary disease) Failure, baclofen pump Fibromyalgia History of tobacco use Instability of joint Smoker Smoking Spondylolisthesis of cervical region Vaginal atrophy Surgical History H/O breast biopsy rt x2 History of bladder surgery History of fusion of cervical spine C5-C7 ACDFF; 12/26/2012; [place], [place] History of hysterectomy with oophorectomy History of tonsillectomy S/P appendectomy S/P cholecystectomy Family History Other Cancer Hypertension Social History Smoking and tobacco status: current every day smoker cigarettes Alcohol intake: never Lives independently: Yes Marital status: Current occupational status: disabled History of recent travel: No Current gender identity: Female Physical Exam Const: COMMON NORMALS: no acute distress GENERAL APPEARANCE: cooperative and comfortable ORIENTATION/CONSCIOUSNESS: Yes awake, Yes oriented to person, Yes oriented to place and Yes oriented to time HENMT: COMMON NORMALS: normocephalic, atraumatic and hearing grossly normal bilaterally HEAD & SCALP: normocephalic and atraumatic Eye: COMMON NORMALS: Equal, round and reactive pupils present, EOMs intact bilaterally, conjunctivae normal and no scleral icterus CONJUNCTIVA: Yes conjunctivae normal PUPIL: Yes Equal, round and reactive pupils present Neck/C-Spine: COMMON NORMALS: full ROM, no lymphadenopathy, supple and no JVD Lymph: LYMPHATIC: no lymphadenopathy noted and no lymphedema noted Resp: COMMON NORMALS: normal respiratory effort, No retractions, No use of accessory muscles and clear to auscultation bilaterally AUSCULTATION: clear to auscultation bilaterally Cardio: COMMON NORMALS: no JVD, regular rate, regular rhythm and No murmurs present (Cardio) RATE: regular rate RHYTHM: regular rhythm GI: COMMON NORMALS: Soft to palpation and No hepatosplenomegaly present AUSCULTATION: Yes normoactive bowel sounds PALPATION: Yes Soft to palpation, No Tenderness to palpation present (GI), No Guarding due to palpation present (GI) and Yes No hepatosplenomegaly present : BLADDER/KIDNEY EXAM: Yes CVA tenderness Back/Pelvis: GENERAL BACK: Yes CVA tenderness CVA tenderness: right Extremity: COMMON NORMALS: normal to inspection, capillary refill normal, no clubbing, cyanosis or edema, no calf tenderness and no pedal edema Neuro: SENSORIUM/ORIENTATION: Yes oriented to person, Yes oriented to place and Yes oriented to time Skin: COMMON NORMALS: no rashes or lesions noted GENERAL SKIN EXAM: no rashes or lesions noted Course Vital Signs: Vital signs: Vital Signs Temperature 97.9 F 02/06/20 14:13 Pulse Rate 60 02/06/20 20:00 Respiratory Rate 17 02/06/20 20:00 Blood Pressure 127/96 02/06/20 20:00 Pulse Oximetry 95 02/06/20 20:00 MDM - Abdominal Pain MDM Narrative: Medical decision making narrative: Care turned over to Dr. Jimenes at change of shift see his note for final diagnosis and disposition Lab Data: Labs: Lab Results 02/06/20 02/06/20 02/06/20 Range/Units 17:03 17:03 17:32 WBC 5.7 (4.0-10.0) 10^3/ uL RBC 4.20 (4.1-5.3) 10^6/u L Hgb 13.6 (11.5-15.3) g/dL Hct 41.1 (37.0-47.0) % MCV 97.9 (81-99) fL MCH 32.4 (28.0-34.0) pg MCHC 33.1 (30.0-36.0) g/dL RDW 12.1 (12.1-15.1) % Plt Count 211 (130-400) 10^3/c mm MPV 10.5 H (7.4-10.4) fL Neut % (Auto) 44.3 % Lymph % (Auto) 46.4 % [place] % (Auto) 6.8 % Eos % (Auto) 1.6 % Baso % (Auto) 0.5 % Neut # (Auto) 2.53 (1.8-7.7) 10^3/u L Lymph # (Auto) 2.7 (0.8-4.8) 10^3/u L [place] # (Auto) 0.4 (0.2-0.9) 10^3/u L Eos # (Auto) 0.1 (0.0-0.8) 10^3/u L Baso # (Auto) 0.0 (0.0-0.1) 10^3/u L Nucleated RBC % (a uto) 0 % Nucleated RBCs # 0.0 /100WBC Sodium 141 (136-145) mmol/L Potassium 3.8 (3.5-5.1) mmol/L Chloride 107 (98-107) mmol/L Carbon Dioxide 25 (22-29) mmol/L Anion Gap 12.8 (5-19) BUN 10 (6-20) mg/dL Creatinine 0.8 (0.5-0.9) mg/dL GFR Calculation 74.5 L (90-130) mL/min Glucose 96 (65-115) mg/dL Calculated Osmolal ity 291 (285-295) mOsm/k g Calcium 9.5 (8.5-10.5) mg/dL Total Bilirubin 0.3 (0.15-1.2) mg/dL AST 19 (0-32) U/L ALT 27 (0-33) U/L Alkaline Phosphata se 87 (35-105) IU/L Total Protein 7.1 (6.6-8.7) g/dL Albumin 4.7 (3.5-5.2) g/dL Globulin 2.4 (1.3-4.6) g/dL Lipase 35 (13-60) U/L Urine Color Straw (Yellow) Urine Appearance Clear (CLEAR) Urine pH 5 (5-7) Ur Specific Gravit y 1.010 (1.005-1.030) Urine Protein Neg (Negative) Urine Glucose (UA) Norm (Normal) Urine Ketones Negative (Negative) Urine Blood Neg (Negative) Urine Nitrate Negative (Negative) Urine Bilirubin Neg (Negative) Urine Urobilinogen Norm (Negative) mg/dL Ur Leukocyte Gladys ase Negative (Negative) Discharge Plan Discharge Patient Disposition: Home Clinical Impression: Abdominal pain, acute Diarrhea Qualifiers: Diarrhea type: unspecified type Qualified Code(s): R19.7 - Diarrhea, unspecified Condition: Stable Prescriptions: New Cipro 500 mg tablet 500 mg PO BID Qty: 10 RF: 0 dicyclomine 20 mg tablet 20 mg PO QID Qty: 5 RF: 0 promethazine 25 mg tablet 25 mg PO Q4H PRN (Reason: nausea and vomiting) Qty: 20 RF: 0 No Action albuterol sulfate 2.5 mg /3 mL (0.083 %) solution for nebulization 2.5 mg INHALATION PRN RF: 0 acetaminophen [Tylenol 8 Hour] 650 mg tablet extended release 650 mg PO QID RF: 0 Premarin 0.625 mg/gram cream 0.625 mg VAGINAL .twice a week RF: 0 omeprazole 20 mg capsule,delayed release(DR/EC) 20 mg PO DAILY Qty: 30 RF: 0 zinc 50 mg tablet 50 mg PO DAILY Qty: 30 RF: 2 vitamin B complex [B Complex-Vitamin B12] Tablet 1 tab PO DAILY RF: 0 gabapentin 800 mg tablet 400 mg PO QID RF: 0 fluticasone propion-salmeterol [Advair Diskus] 250-50 mcg/dose blister with device 1 inh INHALATION BID Qty: 60 RF: 3 tizanidine 2 mg tablet 2 mg PO BID PRN (Reason: muscle spasticity) Qty: 60 RF: 0 Ventolin HFA 90 mcg/actuation Hfa Aerosol Inhaler 2 puff INHALATION Q4H PRN (Reason: Shortness Of Breath) RF: 0 Folic Acid Otc 1 tab PO DAILY RF: 0 topiramate 100 mg tablet 200 mg PO BEDTIME RF: 0 duloxetine 60 mg capsule,delayed release(DR/EC) 60 mg PO QAM RF: 0 eszopiclone 1 mg tablet 1 mg PO BEDTIME RF: 0 Discharge Orders: Discharge Order (Routine); Ordered 02/06/20 Ordered By: Coco Bryant Referrals: Ted Willoughby DO [Primary Care Provider] - 1-3 days Discharge Diet: Clear Liquid Discharge Activity: Increase activity as tolerated Patient Instructions: Acute Diarrhea (ED), Abdominal Pain (ED) Activity Restrictions/Additional Instructions: Please return to the ER immediately for any of the signs or symptoms listed on your discharge instruction sheets, worsening/changing of your symptoms, you are not getting better as quickly as expected, or for ANY other cause or concerns. Follow a clear liquid diet and advance it back to your normal diet only as you can tolerate. Return to the ER for fever, increased pain, blood in your stools, or for any other cause for concern. Be certain to follow-up with Dr. Willoughby as soon as possible for recheck and for further evaluation and care. Sign Out Sign Out Data: Patient Sign Out occurred on 02/06/20 at 18:48. Patient's care was discussed, and care was transferred from to Coco Bryant. Coding Level of Care Code ED Creative Lead for Chg Fwd Documented by User: Coco Bryant 02/06/20 22:09 HPI - Abdominal Pain General: Chief Complaint: Abdominal Pain Stated Complaint: phy ref/abd pain Time Seen by Provider: 02/06/20 16:46 PFSH ED PFSH: Medical History Anxiety and depression Asthma Cervical disc disorder with myelopathy of mid-cervical region Cervical post-laminectomy syndrome Contact with and (suspected) exposure to other viral communicable diseases COPD (chronic obstructive pulmonary disease) Failure, baclofen pump Fibromyalgia History of tobacco use Instability of joint Smoker Smoking Spondylolisthesis of cervical region Vaginal atrophy Surgical History H/O breast biopsy rt x2 History of bladder surgery History of fusion of cervical spine C5-C7 ACDFF; 12/26/2012; [place], [place] History of hysterectomy with oophorectomy History of tonsillectomy S/P appendectomy S/P cholecystectomy Family History Other Cancer Hypertension Social History Smoking and tobacco status: current every day smoker cigarettes Alcohol intake: never Lives independently: Yes Marital status: Current occupational status: disabled History of recent travel: No Current gender identity: Female Course Vital Signs: Vital signs: Vital Signs Temperature 97.9 F 02/06/20 14:13 Pulse Rate 60 02/06/20 20:00 Respiratory Rate 17 02/06/20 20:00 Blood Pressure 127/96 02/06/20 20:00 Pulse Oximetry 95 02/06/20 20:00 MDM - Abdominal Pain MDM Narrative: Medical decision making narrative: 2002 -Case assumed to me at change of shift from Dr. Sanchez. Please see his note for his history, physical exam and medical decision-making notes. Upon my exam the patient has stable and normal vital signs. All of her all her physical exam is unremarkable except for she still has mild right-sided abdominal pain. Her pain on the right side is in the upper and lower quadrant and is mild. There is no rebound, guarding or rigidity. There is no tenderness to percussion. CT scan shows possible gastroenteritis with fluid in the small bowel but no wall thickening or other acute findings. There is no sign of obstruction. The patient has had a cholecystectomy, appendectomy and complete abdominal hysterectomy with bilateral oophorectomy. Patient denies any chest pain, shortness of breath, fever or otherwise. I will go and discharge the patient home with a short course of Cipro for a diarrhea/enteritis type illness. She understands to return if her symptoms change or worsen but at this time she is comfortable and not having any pain. This time I see no sign of acute surgical abdomen and based upon labs and imaging I believe she is safe for discharge. Her lab work is unremarkable with a normal white count no left shift. Her exam is reassuring without any sign of peritonitis or acute abdomen. Differential Diagnosis: Differential diagnosis abdominal pain: Likely abdominal pain, constipation, gastroenteritis, pancreatitis and small bowel obstruction Medical Records: Attestation: I reviewed the patient's medical records. Lab Data: Attestation: I reviewed the patient's lab results. Labs: Lab Results 02/06/20 02/06/20 02/06/20 Range/Units 17:03 17:03 17:32 WBC 5.7 (4.0-10.0) 10^3/ uL RBC 4.20 (4.1-5.3) 10^6/u L Hgb 13.6 (11.5-15.3) g/dL Hct 41.1 (37.0-47.0) % MCV 97.9 (81-99) fL MCH 32.4 (28.0-34.0) pg MCHC 33.1 (30.0-36.0) g/dL RDW 12.1 (12.1-15.1) % Plt Count 211 (130-400) 10^3/c mm MPV 10.5 H (7.4-10.4) fL Neut % (Auto) 44.3 % Lymph % (Auto) 46.4 % [place] % (Auto) 6.8 % Eos % (Auto) 1.6 % Baso % (Auto) 0.5 % Neut # (Auto) 2.53 (1.8-7.7) 10^3/u L Lymph # (Auto) 2.7 (0.8-4.8) 10^3/u L [place] # (Auto) 0.4 (0.2-0.9) 10^3/u L Eos # (Auto) 0.1 (0.0-0.8) 10^3/u L Baso # (Auto) 0.0 (0.0-0.1) 10^3/u L Nucleated RBC % (a uto) 0 % Nucleated RBCs # 0.0 /100WBC Sodium 141 (136-145) mmol/L Potassium 3.8 (3.5-5.1) mmol/L Chloride 107 (98-107) mmol/L Carbon Dioxide 25 (22-29) mmol/L Anion Gap 12.8 (5-19) BUN 10 (6-20) mg/dL Creatinine 0.8 (0.5-0.9) mg/dL GFR Calculation 74.5 L (90-130) mL/min Glucose 96 (65-115) mg/dL Calculated Osmolal ity 291 (285-295) mOsm/k g Calcium 9.5 (8.5-10.5) mg/dL Total Bilirubin 0.3 (0.15-1.2) mg/dL AST 19 (0-32) U/L ALT 27 (0-33) U/L Alkaline Phosphata se 87 (35-105) IU/L Total Protein 7.1 (6.6-8.7) g/dL Albumin 4.7 (3.5-5.2) g/dL Globulin 2.4 (1.3-4.6) g/dL Lipase 35 (13-60) U/L Urine Color Straw (Yellow) Urine Appearance Clear (CLEAR) Urine pH 5 (5-7) Ur Specific Gravit y 1.010 (1.005-1.030) Urine Protein Neg (Negative) Urine Glucose (UA) Norm (Normal) Urine Ketones Negative (Negative) Urine Blood Neg (Negative) Urine Nitrate Negative (Negative) Urine Bilirubin Neg (Negative) Urine Urobilinogen Norm (Negative) mg/dL Ur Leukocyte Gladys ase Negative (Negative) Imaging Data ^: CT Abd/Pel: Radiologist's impression: [facility] [address] [place] [place] [address] CT Scan Report Signed Patient: Willie Carson #: [id number] : 1965Acct#:[id number] Age/Sex: 54 / FADM Date: 02/06/20 Loc: ERRoom/Bed: Attending Dr: Ordering Provider/Ordering MD: Fortunato Sanchez DO Date of Service: 02/06/20 Procedure(s): CT abdomen pelvis w con* [id number] Accession Number(s): [id number] Report Number: [id number] PROCEDURE INFORMATION: Exam: CT Abdomen And Pelvis With Contrast Exam date and time: 02/06/2020 6:50 PM Age: 54 years old Clinical indication: Abdominal pain; Right; Prior surgery; Surgery date: 6+ months; Surgery type: Hyst, gb, bladder, bladder stim; Patient HX: C/O R flank pain x 3 days; Additional info: Abd pain TECHNIQUE: Imaging protocol: Computed tomography of the abdomen and pelvis with intravenous contrast. Sagittal and coronal reformatted images were created and reviewed. Radiation optimization: All CT scans at this facility use at least one of these dose optimization techniques: automated exposure control; mA and/or kV adjustment per patient size (includes targeted exams where dose is matched to clinical indication); or iterative reconstruction. Contrast material: OMNI 300; Contrast volume: 95 ml; Contrast route: INTRAVENOUS (IV); COMPARISON: 1. CT Abdomen/Pelvis Renal [id number] 09/07/2018 10:[address] [place] [id number] 10/19/2018 4:08:27 PM RADIATION DOSE METRICS: Total DLP (mGy-cm): 725.84 FINDINGS: Lungs: Visualized lungs are clear. Pleural space: No pleural effusion. Heart: Visualized portions of the heart are unremarkable. Liver: Diffuse, mildly decreased attenuation in the liver. Findings are stable and consistent with mild fatty infiltration. Gallbladder and bile ducts: Stable findings consistent with a previous cholecystectomy. No biliary ductal dilatation. Pancreas: The pancreas is unremarkable. No pancreatic ductal dilatation. Spleen: The spleen is unremarkable. Adrenal glands: The right and left adrenal glands are unremarkable. Kidneys and ureters: Two cysts in the right kidney are stable, the larger measures 2.8 cm (series 2, image 43). The left kidney is unremarkable. Stomach and bowel: Fluid within the small bowel and colon without evidence of bowel wall thickening. No acute abnormality in the stomach. Appendix: Appendix not definitely visualized. No inflammatory changes in the pericecal region however. Intraperitoneal space: Surgical clips in the right abdomen are unchanged. Vasculature: Mild atherosclerotic changes in the visualized arteries. No evidence for aortic aneurysm or aortic dissection. Hepatic veins, portal veins, splenic vein, and SMV are patent. Lymph nodes: No lymphadenopathy. Urinary bladder: The bladder is incompletely filled, which can limit evaluation. No focal abnormality in the bladder however. Reproductive: Stable changes consistent with a previous hysterectomy. The ovaries are not definitely visualized, not an expected in a postmenopausal female. This may be due to ovarian atrophy. Alternatively, the patient may have had a previous bilateral oophorectomy. Findings are stable. Bones/joints: Mild degenerative changes at both the right and left hips. Mild degenerative changes of the right and left sacroiliac joints. Multilevel degenerative changes of varying severity in the visualized spine. Mild spinal canal stenosis at L1-L2 through L4-L5.Mild levoscoliosis in the visualized spine. Osseous findings are stable. Soft tissues: A spinal cord stimulator with the battery in the right gluteal subcutaneous tissues and the lead extending through the right S3 foramen is stable. A Baclofen pump has been removed. A small portion of the connecting tube is again seen in the subcutaneous tissues posterior to the left paraspinal muscles at the L3-L4 disc level. Findings are stable. CT/CT abdomen pelvis w con* [id number] IMPRESSION: 1. Fluid within the small bowel and colon without evidence of bowel wall thickening. This may reflect viral gastroenteritis in the appropriate clinical situation. 2. Stable mild fatty infiltration of the liver. 3. A Baclofen pump has been removed. A small portion of the connecting tube is again seen in the subcutaneous tissues posterior to the left paraspinal muscles at the L3-L4 disc level. Findings are stable. 4. A spinal cord stimulator with the battery in the right gluteal subcutaneous tissues and the lead extending through the right S3 foramen is stable. 5. Incidental/nonacute findings are listed in the report. Radiation Dose CTDIVOL = (mGy): DLP = 725.84 (mGy-cm) Dictated By:Erin Reid MD Signed By:Erin Reidigned Date/Time:02/06/201934 DD/ 33 Discharge Plan Discharge Patient Disposition: Home Clinical Impression: Abdominal pain, acute Diarrhea Qualifiers: Diarrhea type: unspecified type Qualified Code(s): R19.7 - Diarrhea, unspecified Condition: Stable Prescriptions: New Cipro 500 mg tablet 500 mg PO BID Qty: 10 RF: 0 dicyclomine 20 mg tablet 20 mg PO QID Qty: 5 RF: 0 promethazine 25 mg tablet 25 mg PO Q4H PRN (Reason: nausea and vomiting) Qty: 20 RF: 0 No Action albuterol sulfate 2.5 mg /3 mL (0.083 %) solution for nebulization 2.5 mg INHALATION PRN RF: 0 acetaminophen [Tylenol 8 Hour] 650 mg tablet extended release 650 mg PO QID RF: 0 Premarin 0.625 mg/gram cream 0.625 mg VAGINAL .twice a week RF: 0 omeprazole 20 mg capsule,delayed release(DR/EC) 20 mg PO DAILY Qty: 30 RF: 0 zinc 50 mg tablet 50 mg PO DAILY Qty: 30 RF: 2 vitamin B complex [B Complex-Vitamin B12] Tablet 1 tab PO DAILY RF: 0 gabapentin 800 mg tablet 400 mg PO QID RF: 0 fluticasone propion-salmeterol [Advair Diskus] 250-50 mcg/dose blister with device 1 inh INHALATION BID Qty: 60 RF: 3 tizanidine 2 mg tablet 2 mg PO BID PRN (Reason: muscle spasticity) Qty: 60 RF: 0 Ventolin HFA 90 mcg/actuation Hfa Aerosol Inhaler 2 puff INHALATION Q4H PRN (Reason: Shortness Of Breath) RF: 0 Folic Acid Otc 1 tab PO DAILY RF: 0 topiramate 100 mg tablet 200 mg PO BEDTIME RF: 0 duloxetine 60 mg capsule,delayed release(DR/EC) 60 mg PO QAM RF: 0 eszopiclone 1 mg tablet 1 mg PO BEDTIME RF: 0 Discharge Orders: Discharge Order (Routine); Ordered 02/06/20 Ordered By: Coco Bryant Referrals: Ted Willoughby DO [Primary Care Provider] - 1-3 days Discharge Diet: Clear Liquid Discharge Activity: Increase activity as tolerated Patient Instructions: Acute Diarrhea (ED), Abdominal Pain (ED) Activity Restrictions/Additional Instructions: Please return to the ER immediately for any of the signs or symptoms listed on your discharge instruction sheets, worsening/changing of your symptoms, you are not getting better as quickly as expected, or for ANY other cause or concerns. Follow a clear liquid diet and advance it back to your normal diet only as you can tolerate. Return to the ER for fever, increased pain, blood in your stools, or for any other cause for concern. Be certain to follow-up with Dr. Willoughby as soon as possible for recheck and for further evaluation and care. Sign Out Sign Out Data: Patient Sign Out occurred on 02/06/20 at 18:48. Patient's care was discussed, and care was transferred from to Coco Bryant. Coding Level of Care Code ED Creative Lead for Lucia El
[2020-02-06 18:11] VITALS: BP 147/71; PULSE 78; RESP 16; O2SAT 97
[2020-02-06] MEDS: morphine 4 mg/mL SDV 1 mL IVP (18:25)
[2020-02-06 18:39] LABS: Bilirubin Urine Neg (Negative); Blood Urine Neg (Negative); Glucose Urine UA Norm (Normal); Ketones Urine Negative (Negative); Leukocyte Esterase Urine Negative (Negative); Nitrate Urine Negative (Negative); Protein Urine Neg (Negative); Urine Appearance Clear (CLEAR); Urine Color Straw (Yellow); Urobilinogen Urine Norm (Negative); pH Urine 5 (5-7)
[2020-02-06] MEDS: iohexol 300 mg/mL 100 mL Btl IV (19:04)
[2020-02-06 19:11] VITALS: BP 145/101; PULSE 57; RESP 18; O2SAT 99
[2020-02-06] MEDS: HYDROmorphone 1 mg/mL INJ 1 mL 0.5 MG IVP (19:12)
[2020-02-06 19:53] VITALS: BP 136/88; PULSE 60; RESP 15; O2SAT 94
[2020-02-06 20:00] VITALS: BP 127/96; PULSE 60; RESP 17; O2SAT 95
[2020-02-06] MEDS: dicyclomine 10 mg Capsule 20 MG PO (20:22)
[2020-02-06] MEDS: ciprofloxacin 500 mg Tablet PO (20:22)
== END 2020-02-06 20:25 | disposition home or self-care (01) ==
PROVIDERS: Family Medicine; Emergency Provider Emergency Medicine; PCP Family Medicine
DX: R10.9 Unspecified abdominal pain (principal); R19.7 Diarrhea, unspecified; J44.9 Chronic obstructive pulmonary disease, unspecified; F17.210 Nicotine dependence, cigarettes, uncomplicated; K59.00 Constipation, unspecified
CPT/HCPCS: 12345; 74018; 74177; 80053; 81003; 83690; 85025; 96374; 96375; 96376; 99283; 99284; J1170; J1885; J2270; J2360; Q9967

== ENCOUNTER → 2020-02-27 10:41 | Outpatient (BNVA) | payer MEDICARE, MEDICAID, SELFPAY | PROVIDERS: PCP Family Medicine; Visit Provider Anesthesiology Pain Medicine | DX: M79.18 Myalgia, other site (principal); T85.610D Breakdown (mechanical) of cranial or spinal infusion catheter, subsequent encounter; M47.812 Spondylosis without myelopathy or radiculopathy, cervical region; M50.020 Cervical disc disorder with myelopathy, mid-cervical region, unspecified level; M43.12 Spondylolisthesis, cervical region; M54.12 Radiculopathy, cervical region; G62.9 Polyneuropathy, unspecified; M54.5 Low back pain; M96.1 Postlaminectomy syndrome, not elsewhere classified; X58.XXXD Exposure to other specified factors, subsequent encounter; Z79.891 Long term (current) use of opiate analgesic | CPT/HCPCS: 20553; 99214; J1030; J3490 ==

== ENCOUNTER → 2020-03-05 14:36 | Outpatient (BNVA) | payer MEDICARE, MEDICAID, SELFPAY | PROVIDERS: PCP Family Medicine; Visit Provider Family Medicine | DX: M79.672 Pain in left foot (principal) | CPT/HCPCS: 73620; 73630 ==

== ENCOUNTER 2020-03-19 08:51 | Outpatient (CLI) | payer MEDICARE, MEDICAID, SELFPAY ==
--- NOTE | 2020-03-19 09:15 | CT_ITS ---
WS: [id number] CT CERVICAL SPINE HISTORY: M54.12 - Radiculopathy, cervical region TECHNIQUE: Contiguous 2.5 mm axial imaging performed through the entire cervical spine. Sagittal and coronal reformats also performed. All CT scans at [facility] use at least one of these do se optimization techniques: automated exposure control; mA and/or kV adjustment per patient size (inc ludes targeted exams where dose is matched to clinical indication); or iterative reconstruction. DLP: 1777.68 mGy-cm. COMPARISON: 06/23/2019 Prior anterior cervical fusion extends from C5 to C7. Interbody spacers at C5-6 and C6-7. Superior fu dominic plate abuts the anterior inferior endplate of C4. No interval change. Partial fusion across the LEFT C4-5 facet joints. C3 anterolisthesis by 3.1 mm. Additional increasing facet joint arthritis wit h narrowing on the LEFT at C2-3 and C3-4. No fractures are identified. As seen on the prior MRI there is very mild narrowing of the disc spaces at C5-6 and C6-7 with interbody spacers. C2-C3: Moderate LEFT facet joint arthritis. C3-C4: Diffuse osteophytic ridging. Moderate to severe LEFT foraminal stenosis due to combination of the anterolisthesis of C3 and the facet arthritis. Similar to the prior study. C4-C5: Mild osteophytic ridging resulting in mild LEFT foraminal narrowing. Increasing facet joint ar thritis on the LEFT. C5-C6: Diffuse osteophytic ridging. Significant beam hardening artifact from the hardware. There is m ild central with moderate to severe bilateral foraminal stenosis. C6-C7: There is significant osteophytic ridging around the vertebral bodies. Severe LEFT and moderate RIGHT foraminal stenosis. Mild central stenosis. C7-T1: Mild bilateral foraminal stenosis, LEFT greater than RIGHT. Soft tissues are normal. Lung apices are clear. CT/CT cervical spin wo con* [id number] IMPRESSION: 1. Prior anterior cervical fusion with interbody spacers from C5 to C7 is unch anged. Mild subsidence of interbody spacers. 2. Taking into differences in technique from the prior study there has probabl y been no significant interval progression of the stenoses. 3. C3 anterolisthesis by 3.1 mm is unchanged. 4. Increasing facet joint arthritis and ankylosis at C4-5 on the LEFT. 5. Moderate to severe LEFT foraminal stenosis at C3-4 is unchanged. 6. Mild central with moderate to severe bilateral foraminal stenosis at C5-6. 7. Severe LEFT and moderate RIGHT foraminal stenosis at C6-7.
== END 2020-03-19 08:52 | disposition home or self-care (01) ==
LOC: RADWPI 08:53
PROVIDERS: PCP Family Medicine; Visit Provider Anesthesiology Pain Medicine
DX: M54.12 Radiculopathy, cervical region (principal); M48.02 Spinal stenosis, cervical region; M43.22 Fusion of spine, cervical region; M47.812 Spondylosis without myelopathy or radiculopathy, cervical region
CPT/HCPCS: 72125

== ENCOUNTER → 2020-03-20 09:51 | Outpatient (BNVA) | payer MEDICARE, MEDICAID, SELFPAY | PROVIDERS: PCP Family Medicine; Visit Provider Anesthesiology Pain Medicine | DX: G89.29 Other chronic pain (principal); M54.12 Radiculopathy, cervical region; M47.812 Spondylosis without myelopathy or radiculopathy, cervical region; M50.020 Cervical disc disorder with myelopathy, mid-cervical region, unspecified level; M43.12 Spondylolisthesis, cervical region; M54.5 Low back pain; G62.9 Polyneuropathy, unspecified; M96.1 Postlaminectomy syndrome, not elsewhere classified; T85.610A Breakdown (mechanical) of cranial or spinal infusion catheter, initial encounter; X58.XXXA Exposure to other specified factors, initial encounter; Z98.1 Arthrodesis status | CPT/HCPCS: 99214 ==

== ENCOUNTER → 2020-03-30 09:20 | Outpatient (BNVA) | payer MEDICARE, MEDICAID, SELFPAY | PROVIDERS: PCP Family Medicine; Referring Provider Dermatology; Visit Provider Orthopaedic Surgery | DX: M54.2 Cervicalgia (principal) | CPT/HCPCS: 72050 ==

== ENCOUNTER 2020-04-20 09:51 | Outpatient (CLI) | payer MEDICARE, MEDICAID, SELFPAY ==
--- NOTE | 2020-04-20 09:55 | IR_ITS ---
WS: [id number] CERVICAL MYELOGRAM HISTORY: Z98.1 - Arthrodesis status COMPARISON: None available. FLUOROSCOPY TIME: 1.8 minutes. Procedure, risks and complications were explained to the patient. Risks including bleeding, infection , headaches, allergic reaction and seizures. Consent has been obtained. With the patient in prone position the skin over the lumbar region is cleansed with ChloraPrep and an esthetized with lidocaine. 22-gauge spinal needle is inserted into the thecal sac at the appropriate level determined by fluoroscopy. Omnipaque 300; 12 ml is injected slowly under fluoroscopy with no co mplications. Needle bevel is perpendicular to the longitudinal fibers of the dura. Stylet is reinsert ed prior to removal of the needle. Patient tolerated the procedure well. Patient will proceed to CT f or further evaluation. Uncomplicated injection into the lumbar subarachnoid space. Anterior cervical fusion from C5 to C7 with interbody spacers. Interbody spacers are difficult to vis ualize except for the metallic struts. There may be partial fusion. There is no lucency around the sc rews. Anterior cervical plate encroaches into the anterior endplate of C4. C3 anterolisthesis by 2.8 mm increases to 4.1 mm during flexion and 1.4 mm during extension. During f lexion and extension there is no change in the arthrodesis. IR/[place] cervical [id number] IMPRESSION: 1. Anterior cervical fusion with interbody spacers from C5 to C7. No evidence for hardware loosening. No instability at the arthrodesis level. 2. Mild flexion extension instability at C3.
--- NOTE | 2020-04-20 09:55 | CT_ITS ---
WS: [id number] CT CERVICAL MYELOGRAM HISTORY: Z98.1 - Arthrodesis status Technique: All CT scans at [facility] use at least one of these dose optimization techniq ues: automated exposure control; mA and/or kV adjustment per patient size (includes targeted exams wh ere dose is matched to clinical indication); or iterative reconstruction. DLP: 1560.66 mGycm COMPARISON: 03/19/2020 Good opacification of thecal sac with contrast. Straightening and reversal of the normal cervical lordosis. C3 anterolisthesis by 3 mm is similar to prior studies. Anterior cervical fusion with interbody spacers extends from C5 to C7. Anterior cervic al plate encroaches into the inferior anterior endplate of C4. Similar to the prior studies. Severe f acet joint arthritis on the LEFT at C2-3, C3-4 and C4-5. Partial fusion across the LEFT C4-5 facet christopher int. C1-C2: Normal. C2-C3: No stenosis. Moderate facet arthritis on the LEFT. C3-C4: Diffuse osteophytic ridging. Moderate facet joint arthritis on the LEFT. Moderate LEFT foramin al narrowing with mild encroachment of osteophyte disease upon the ventral thecal sac. C4-C5: Diffuse annular disc bulging and osteophytic ridging. Moderate to severe hypertrophic changes involving the LEFT facet joint. Osteophyte encroaches upon the ventral thecal sac. Mild central and L EFT foraminal stenosis. C5-C6: Reversal of the normal cervical lordosis with hypertrophic bone formation and facet disease re sulting in mild central and moderate bilateral foraminal stenosis. C6-C7: Diffuse osteophytic ridging and facet arthritis. Mild central and bilateral foraminal stenosis , LEFT greater than RIGHT. C7-T1: Mild osteophytic ridging. Mild LEFT foraminal narrowing. Paravertebral soft tissues are negative. CT/CT cervical spine w con [id number] IMPRESSION: 1. Uncomplicated cervical myelogram. 2. Anterior cervical fusion extends from C5 to C7 with interbody spacers. The appearance of the hardware is not changed significantly over several prior stud ies. The anterior cervical plate encroaches into the internal inferior surface of the C4 vertebral body. 3. C3 anterolisthesis by 3 mm. 4. Moderate to severe facet joint arthritis on the LEFT from C2-3 through C4-5 with partial fusion at the C4-5 facet joint. 5. Mild encroachment upon the ventral thecal sac by disc and osteophyte diseas e. No high-grade severe stenosis centrally. 6. Moderate LEFT foraminal stenosis at C3-4. 7. Mild central and LEFT foraminal stenosis at C4-5. 8. Mild central and moderate bilateral foraminal stenosis at C5-6. 9. Mild central and [id number]-mr-kihmrusn bilateral foraminal stenosis at C6-7, LEF T greater than RIGHT.
[2020-04-20] MEDS: iohexol 300 mg/mL 50 mL Btl INTRATHECA (10:36)
== END 2020-04-20 09:52 | disposition home or self-care (01) ==
LOC: RADWPI 09:53
PROVIDERS: PCP Family Medicine; Visit Provider Orthopaedic Surgery
DX: Z98.1 Arthrodesis status (principal); M53.2X2 Spinal instabilities, cervical region; M48.02 Spinal stenosis, cervical region; M25.78 Osteophyte, vertebrae; Z20.822 Contact with and (suspected) exposure to COVID-19
CPT/HCPCS: 62302; 72040; 72126; 87635; Q9967

== ENCOUNTER 2020-04-25 19:37 | Observation (INO) | payer MEDICARE, MEDICAID, SELFPAY ==
[2020-04-20 08:45] VITALS: BMI 28.3
--- NOTE | 2020-04-20 09:14 | ANES.PREANE2 ---
Pre-Anesthetic Assessment Pre-Anesthetic Assessment: Height/Weight: Height 1.6 m Weight 72.575 kg Preop Diagnosis: cervical spondylosis with myelopathy Proposed Procedure: Operation Date: 04/25/20 10:50 Proposed Procedures p C 3/4 C4/5 ACDF C2-T2 PSF WITH DECOMPRESSION 65994, 95581, 61769, 66036, 85578, 92774, 64063 57044 23934 80830 M57.12(Not Applicable) - Levy Aguillon DO Was Beta Kimmie taken within 24 hours: N/A Social: Social History: Tobacco and No alcohol Comment: Daily marijuana Exam: Pre-Anes Outpt Exam: alert, oriented x 3, clear to auscultation bilaterally and regular rate & rhythm Airway: Submandibular: WNL Cervical ROM: WNL MP: 2 Dentition: False History/ROS: No significant history except as noted and No significant complaints Pulmonary: Pulmonary: Asthma, COPD and SOB CV/HEM: CV/HEM: None reported : Comments: Bladder stimulator Hepatic: Hepatic: None reported GI: GI: None reported Metabolic: Metabolic: None reported Musc/skel: Musc/skel: Fibromyalgia and OA/DJD Neuropsych: Neuropsych: Anxiety and Neuropathy Anesthetic Plan: ASA status: 3 Anesthesia: Anesthesia Evaluation and General Risk of > 500 ml blood loss (7ml/kg in children): Yes, adequate IV access and fluids planned PFSH Anesthesia PFSH: Medical History Anxiety and depression Asthma Cervical disc disorder with myelopathy of mid-cervical region Cervical post-laminectomy syndrome Contact with and (suspected) exposure to other viral communicable diseases COPD (chronic obstructive pulmonary disease) Failure, baclofen pump Fibromyalgia History of tobacco use Instability of joint Smoker Smoking Spondylolisthesis of cervical region Vaginal atrophy Surgical History H/O breast biopsy rt x2 History of bladder surgery History of fusion of cervical spine C5-C7 ACDFF; 12/26/2012; [place], [place] History of hysterectomy with oophorectomy History of tonsillectomy S/P appendectomy S/P cholecystectomy Family History Other Cancer Hypertension Social History Smoking and tobacco status: current every day smoker cigarettes Alcohol intake: never Lives independently: Yes Marital status: Current occupational status: disabled History of recent travel: No Current gender identity: Female Female Reproductive History: Date of last menstrual period: 04/27/85 Data Anesthesia Cardiac Studies: No Data to Display
[2020-04-20 09:31] LABS: Basophils % 0.5 %; Eosinophils # 0.1 10^3/uL (0.0-0.8); Eosinophils % 1.3 %; Hematocrit 39.9 % (37.0-47.0); Hemoglobin 13.8 g/dL (11.5-15.3); Lymphocytes # 2.5 10^3/uL (0.8-4.8); Lymphocytes % 39.9 %; Mean Corpuscular HGB Conc 34.6 g/dL (30.0-36.0); Mean Corpuscular Hemoglobin 33.3 pg (28.0-34.0); Mean Corpuscular Volume 96.1 fL (81-99); Mean Platelet Volume 10.8 fL (7.4-10.4); Monocytes # 0.4 10^3/uL (0.2-0.9); Monocytes % 6.6 %; Neutrophils # 3.27 10^3/uL (1.8-7.7); Neutrophils % 51.5 %; Nucleated Red Blood Cells % 0 %; Platelet Count 214 10^3/cmm (130-400); Red Blood Count 4.15 10^6/uL (4.1-5.3); Red Cell Distribution Width 11.9 % (12.1-15.1); White Blood Count 6.3 10^3/uL (4.0-10.0)
[2020-04-20 10:04] LABS: Anion Gap 13.8 (5-19); Blood Urea Nitrogen 12 mg/dL (6-20); Calcium 9.5 mg/dL (8.5-10.5); Carbon Dioxide 24 mmol/L (22-29); Chloride 108 mmol/L (98-107); Glomerular Filtration Rate 86.6 mL/min (90-130); Glucose 88 mg/dL (65-115); Osmolality Calculated 293 mOsm/kg (285-295); Potassium 3.8 mmol/L (3.5-5.1); Sodium 142 mmol/L (136-145)
[2020-04-25] VITALS (16 sets, daily range): BP systolic 116–167; BP diastolic 77–99; PULSE 66–125; RESP 12–22; TEMP 36.1–36.5; O2SAT 95–100
--- NOTE | 2020-04-25 | SCC_ITS ---
Procedure Done: 1. Anterior diskectomy C3/4 2. Anterior discectomy C4/5 3. Insertion of cage C3/4 4. Insertion of Cage C4/5 5. Instrumentation with anterior plate from C3-C5 6. Use of allograft 7. Removal of deep hardware (anterior cervical plate and screws from C5-C7) 8.C2-T2 Instrumentation 9. C2-T2 Posterior spine fusion 10. Laminectomy C5 with partial facetectomy and foraminotomy C5/6 bilateral 11. Laminectomy C6 with partial facetectomy and foraminotomy C6/7 bilateral 12 Laminectomy C7 13. application and removal of pickett tongs 14 use of allograft 15. Use of autograft from the same incision 80.2 seconds of fluoroscopic guidance, for a cumulative dose of 8.24 mGy, was provided to Dr. Aguillon by the radiology department. C-arm images of the cervical spine were saved for the patient's permanent record. [facility]
[2020-04-25] MEDS: sodium chloride 0.9% 1,000 ML 30 ML IV (10:14)
[2020-04-25] MEDS: midazolam 1 mg/mL INJ 2 mL 2 MG IVP (10:21)
--- NOTE | 2020-04-25 10:39 | ECG_ITS ---
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 Measurements Intervals [place] Rate: 52 P: 61 MO: 175 QRS: 44 QRSD: 102 T: 44 QT: 464 QTc: 433 Interpretive Statements SINUS BRADYCARDIA Compared to ECG 10/07/2018 02:00:39 Sinus rhythm no longer present Myocardial infarct finding no longer present Electronically Signed On 04-26-2020 16:45:14 CREPE [employer] by Ranjit Padilla M.D. [email or web address]
--- NOTE | 2020-04-25 10:59 | W.PM.OPSUD ---
Surgery/Procedure H&P Update DATE OF PROCEDURE: April 25, 2020 DATE H&P PERFORMED: 03/30/20 H&P UPDATE INFORMATION: I have reviewed H&P completed within last 30 days, I have examined patient prior to procedure and No changes to prior documentation PREOP DIAGNOSIS: Implanted intrathecal catheter/pump PLANNED PROCEDURE: Operation Date: 04/25/20 11:00 Proposed Procedures p C 3/4 C4/5 ACDF C2-T2 PSF WITH DECOMPRESSION 85136, 99407, 59040, 01365, 89420, 79231, 67986 25291 40166 31789 M57.12(Not Applicable) - Levy Aguillon, DO
--- NOTE | 2020-04-25 14:04 | SUR.OPER ---
DAUGHTER AND S/O UPDATED OF SURGICAL STATUS
[2020-04-25] MEDS: thrombin 5,000 unit SDV 5000 UNIT XX (14:24)
[2020-04-25] MEDS: neomycin-poly-bacitracin oint 28 gm 1 APPLIC TOPICAL (15:55)
[2020-04-25] MEDS: vancomycin 1,000 MG SDV 2000 MG XX (17:44)
--- NOTE | 2020-04-25 18:30 | XR_ITS ---
WS: [id number] C-ARM RADIOGRAPHS CERVICAL SPINE; 4 IMAGES HISTORY: CERVICAL SPONDYLOSIS COMPARISON: 04/20/2020 Intraoperative imaging for screw and iveth fixation across the cervical thoracic junction. Revision of the anterior cervical plate and fusion. XR/XR cervical spine 3V* [id number] IMPRESSION: Intraoperative imaging during revision of the anterior cervical plate with iveth and screw fixation across the cervicothoracic junction.
--- NOTE | 2020-04-25 19:01 | P.OP_ITS ---
Operative Report Date of procedure: April 25, 2020 Pre-op Diagnosis: cervical spondylosis with myelopathy Post-op diagnosis: same Procedure Done: 1. Anterior diskectomy C3/4 2. Anterior discectomy C4/5 3. Insertion of cage C3/4 4. Insertion of Cage C4/5 5. Instrumentation with anterior plate from C3-C5 6. Use of allograft 7. Removal of deep hardware (anterior cervical plate and screws from C5-C7) 8.C2-T2 Instrumentation 9. C2-T2 Posterior spine fusion 10. Laminectomy C5 with partial facetectomy and foraminotomy C5/6 bilateral 11. Laminectomy C6 with partial facetectomy and foraminotomy C6/7 bilateral 12 Laminectomy C7 13. application and removal of pickett tongs 14 use of allograft 15. Use of autograft from the same incision Surgeon: Levy Aguillon Anesthesia: General Estimated blood loss (mL): 500 Condition: stable Disposition: PACU Procedure: 1. Anterior diskectomy C3/4 2. Anterior discectomy C4/5 3. Insertion of cage C3/4 4. Insertion of Cage C4/5 5. Instrumentation with anterior plate from C3-C5 6. Use of allograft 7. Removal of deep hardware (anterior cervical plate and screws from C5-C7) 8.C2-T2 Instrumentation 9. C2-T2 Posterior spine fusion 10. Laminectomy C5 with partial facetectomy and foraminotomy C5/6 bilateral 11. Laminectomy C6 with partial facetectomy and foraminotomy C6/7 bilateral 12 Laminectomy C7 13. application and removal of pickett tongs 14 use of allograft 15. Use of autograft from the same incision The patient was taken to the operating room, where she underwent general endotracheal anesthesia without complications. sHe was then positioned supine on the operating table, and all areas of impingement were well padded. The arms were carefully padded and tucked at his sides. A roll was placed between the shoulder blades.. An x-ray was done to determine the appropriate level for the skin incision. The entire neck was then sterilely prepped and draped in the usual fashion. Neuromonitoring was attached prior to prepping. A transverse skin incision was made and carried down to the platysma muscle. T his was then split in line with its fibers. Blunt dissection was carried down medial to the carotid sheath and lateral to the trachea and esophagus until the anterior cervical spine was visualized. A needle was placed into a disc and an x-ray was done to determine its location. The longus colli muscles were then elevated bilaterally with the electrocautery unit. Self-retaining retractors were placed deep to the longus colli muscle. The previous C5-7 ACDF plate was identified. The plate was then cleaned and the screws were identified and removed. Then the plate was removed. Attention was brought to the C4/5 level that was confirmed on x-ray. The disk space was then distracted. The microscope was then brought in. A radical anterior discectomies were performed at C4/5. This included complete removal of the anterior annulus, nucleus, and posterior annulus. The posterior longitudinal ligament was removed as were the posterior osteophytes. Foraminotomies were then accomplished bilaterally. This was done using a high speed ira, kerrison rongeurs and curretes Once all of this was accomplished, the curved currette was used to check for any residual compression. The central canal was wide open as were the foramen. A high-speed bur was used to remove the cartilaginous endplates above and below the interspace. Bleeding cancellous bone was exposed. The disc space were measured and appropriate size cage were placed sterilely onto the field. Allograft graft was packed into the cages. The cage was then placed and there was good juxtaposition against the bleeding decorticated surfaces and good distraction of each interspace. Attention was brought to the next interspace. Attention was brought to the C3/4 level that was confirmed on x-ray. The disk space was then distracted. The microscope was then brought in. A radical anterior discectomies were performed at C3/4. This included complete removal of the anterior annulus, nucleus, and posterior annulus. The posterior longitudinal ligament was removed as were the posterior osteophytes. Foraminotomies were then accomplished bilaterally. This was done using a high speed ira, kerrison rongeurs and curretes Once all of this was accomplished, the curved currette was used to check for any residual compression. The central canal was wide open as were the foramen. A high-speed bur was used to remove the cartilaginous endplates above and below the interspace. Bleeding cancellous bone was exposed. The disc space were measured and appropriate size cage were placed sterilely onto the field. Allograft graft was packed into the cages. The cage was then placed and there was good juxtaposition against the bleeding decorticated surfaces and good distraction of each interspace. The appropriate size anterior cervical locking plate was chosen and bent into gentle lordosis. Two screws were then placed into each of the vertebral bodies at C3-C5. There was excellent purchase. A final x-ray was done confirming good position of the hardware and Cages. The locking screws were then applied, also with excellent purchase. Following a final copious irrigation, there was good hemostasis and no dural leaks. The carotid pulse was strong. The wounds were then closed in layers using 2-0 Vicryl suture for the platysma muscle, 2-0 Vicryl suture for the subcutaneous tissue, and 4-0 monocryl suture in a subcuticular skin closure. Glue was placed followed by application of a sterile dressing. The drain was hooked to bulb suction. A soft collar was applied. The patient was then carefully returned to the supine position on his hospital bed Attention was then placed to placing the Pickett tongs onto the patient. Then she was flipped back onto the bed attaching onto the Pickett tongs attachment. Posterior neck was shaved and patient was prepped and draped in the normal sterile fashion. All areas impingement were padded prior to prepping and draping. Skin incision was made from C2 down to T2. Subperiosteal dissection was made from the spinous processes of C2 out to the lateral masses of C2 bilaterally. This was done all the way down to C7. And then T1 and 2 out to the edges of the transverse processes. Once the posterior cervical spine was dissected and confirmed to be the appropriate levels. Lateral mass screws were placed at C3-4-5 and 6 bilaterally. This was done using the bur followed by the drill set of 12. Followed by the ball feeler. Then followed by placing 14 mm lateral mass screws. Then attention was placed to doing the C2 pars screws. The drill was used followed by the drill set at 16. Under C-arm guidance. All feeler was used. And then 18 mm pars screws were placed into C2. Next attention was placed to the T1 and T2 levels. Pedicle screws were placed. This was done using C-arm guidance. The drill was used followed by the gearshift followed by the ball probe and then radical screws were placed. Once all the screws were placed attention was then brought to performing the laminectomies. Attention was brought to the C7 level. High-speed bur was used to take down the lamina bilaterally. Rongeur was used to remove the lamina. This was then repeated at C6. Laminectomy was performed. And then partial facetectomy and foraminotomies were performed bilaterally using high-speed bur Kerrison rongeur and curettes to ensure that the C6 nerve was completely decompressed. The C7 nerve was then also completely decompressed using the Kerrison rongeur and curettes. And then this process was repeated at C5 a C5 laminectomy was performed and then partial facetectomies and foraminotomies were performed bilaterally at these levels. Wounds were irrigated bleeding was coagulated. Then attention was brought to placing the rods from C2-T2. The appropriate size iveth was bent and then screws tulips were placed. And then the end caps were placed on these tulips. This was repeated on both sides. Once all the screws and caps were placed they were torqued down. Then attention was brought to decorticating the bone. High-speed bur was used followed by placing the allograft and autograft. Deep drain was placed and then the cervical fascia was closed in a layered fashion. Bank powder was placed over the cervical fascia and skin was closed with 2-0 strata fix. And skin was closed with nylon. Drain was sewn in. Patient was then flipped into the supine position and Pickett was removed. Patient was then transferred to the PACU after being extubated is stable
--- NOTE | 2020-04-25 19:39 | PM.CONSULT ---
Providers/Reason For Consult Consulting Physican/Specialty*: Hospitalist Reason for Consult*: Postoperative care Attending Physician: Levy Aguillon DO Primary Care Provider: Ted Willoughby DO History of Present Illness History of Present Illness Willie Carson is a 55 year old female status post anterior diskectomy C3/C4 for cervical spondylosis with myelopathy, postop day 0. Hospitalist service has been requested to co-manage because of her underlying intractable pain history of COPD. She was under GA for about 6 hours. At the time of my evaluation patient had cervical collar, she was able to follow my verbal commands, she squeeze my fingers on command and open her eyes and told me that her pain is 10/10. Fingerstick revealed blood glucose 154. She was saturating well 99- 100% on 2 L nasal cannula, systolic blood pressure 140s to 160smmhg. I requested her nurse to give her Dilaudid 1 mg IV push and start lactated Ringer at 75 cc/h. Check POC every 6hr. Review of Systems Const: Denies: fever(s) Eyes: Denies: change in vision ENMT: Reports: throat pain Card: Denies: chest pain Resp: Denies: dyspnea GI: Denies: abdominal pain : Denies: flank pain Musc: Reports: neck pain and back pain Skin/Breast: Reports: lesions Neuro: Denies: headache(s) Psych: Denies: anxiety Endo: Denies: polyuria Leoncio/Lymph: Denies: easy bruising All/Imm: Denies: urticaria Meds/Allergies Home Medications and Allergies Home Medications Medication Instructions Recorded Confirmed Last Taken Type acetaminophen 650 mg 650 mg PO QID tab 03/16/19 04/25/20 04/25/20 History tablet,extended release albuterol sulfate 2.5 mg INHALATION PRN 03/16/19 04/25/20 04/25/20 History conjugated estrogens 0.625 mg/gram 0.625 mg VAGINAL .twice a week gm 03/16/19 04/20/20 04/14/20 History vaginal cream omeprazole 20 mg capsule,delayed 20 mg PO DAILY #30 cap 04/26/19 04/25/20 04/25/20 Rx release vitamin B complex 1 tab PO DAILY 09/14/19 04/25/20 04/24/20 History fluticasone 250 mcg-salmeterol 50 1 inh INHALATION BID #60 each 12/20/19 04/25/20 04/25/20 Rx mcg/dose blistr powdr for inhalation albuterol sulfate [Ventolin HFA] 2 puff INHALATION Q4H PRN 02/06/20 04/25/20 04/24/20 History duloxetine 60 mg PO QAM 02/06/20 04/25/20 04/25/20 History gabapentin 800 mg tablet 800 mg PO QID tab 02/06/20 04/25/20 04/25/20 History topiramate 200 mg PO BEDTIME 02/06/20 04/25/20 04/24/20 History tizanidine 2 mg tablet 2 mg PO BID PRN #60 tab 03/20/20 04/25/20 04/24/20 Rx Folic Acid Otc 2 tab PO DAILY 03/30/20 04/25/20 04/25/20 History xbkrcbaz-cqfwvmc-zycl-iron 18 See Rx Instructions .ROUTE .COMPLEX 03/30/20 04/25/20 04/24/20 History mg-FA 400 mcg-vit K 25 mcg tablet zinc 50 mg tablet 100 mg PO DAILY tab 03/30/20 04/25/20 04/24/20 History Allergies Allergy/AdvReac Type Severity Reaction Status Date / Time Sulfa (Sulfonamide Allergy Unknown unknown Verified 04/25/20 09:57 Antibiotics) Current Medications Current Medications Generic Name Dose Route Start Last Admin Trade Name Freq PRN Reason Stop Dose Admin Sodium Chloride 1,000 mls @ 30 mls/hr 04/25/20 08:00 04/25/20 14:25 Sodium Chloride 0.9% IV 04/26/20 07:59 Infused .Q24H LEW Infusion Midazolam HCl 2 mg 04/25/20 08:00 04/25/20 10:21 Midazolam 1 Mg/Ml Inj 2 Ml IVP 2 mg Q5M PRN Administration Preop Anxiety PFSH Acute PFSH: Medical History (Updated 04/25/20 @ 21:11 by Agapito Bermudez MD) Anxiety and depression Anxiety as acute reaction to gross stress Asthma Cervical disc disorder with myelopathy of mid-cervical region Cervical post-laminectomy syndrome Contact with and (suspected) exposure to other viral communicable diseases COPD (chronic obstructive pulmonary disease) Failure, baclofen pump Fibromyalgia History of tobacco use Instability of joint Smoker Smoking Spondylolisthesis of cervical region Vaginal atrophy Surgical History (Updated 04/25/20 @ 21:11 by Agapito Bermudez MD) H/O breast biopsy rt x2 History of bladder surgery History of fusion of cervical spine C5-C7 ACDFF; 12/26/2012; [place], [place] History of hysterectomy with oophorectomy History of tonsillectomy S/P appendectomy S/P cholecystectomy Status post insertion of intrathecal pump Pump placed 06/2017 [place]OV[place] [facility] [place] History Other Cancer Hypertension Social History Smoking and tobacco status: current every day smoker cigarettes Alcohol intake: never Lives independently: Yes Marital status: Current occupational status: disabled History of recent travel: No Current gender identity: Female Female Reproductive History: Date of last menstrual period: 04/27/85 Vitals/I&O/Wt Last Vital Signs Temp 97.0 F L 04/25/20 19:12 Pulse 66 04/25/20 19:35 Resp 12 04/25/20 19:35 BP 159/99 04/25/20 19:35 Pulse Ox 100 04/25/20 19:35 04/25/20 04/25/20 04/25/20 06:59 14:59 22:59 Intake Total 1050 / 1050 1550 / 2600 Output Total 700 / 700 Balance 1050 / 1050 850 / 1900 Physical Exam Narrative: EXAM NARRATIVE: Middle-age female who appears more than stated age Was laying in her bed with cervical collar Able to follow my verbal commands, she open her eyes, squeeze my fingers and told me that her pain is 10/10 No new neurological changes noted Was saturating well on 2 L nasal cannula Aspirin, S2 sinus rhythm no murmur appreciated Abdomen soft bowel sounds are sluggish No extremity no edema gangrene ulcer, she has SCDs bilaterally No acute respiratory distress, no active stridor or wheezing Surgical drain with blood-tinged discharge Bhandari catheter draining clear yellow urine 50 cc in her urine bag Urinary Catheter Management^: Bhandari: Cath Placed During This Visit: yes Urinary Catheter Date of Insertion: 04/25/20 Urinary Catheter Time of Insertion: 13:00 A&P Assessment and plan (1) S/P cervical discectomy: Postoperative day 0 Patient is afebrile current blood glucose 154 mg/dL, saturating well on 2 L nasal cannula Patient complaining of neck pain 12/16, Added bowel regimen along one-time Dilaudid 1 mg IV push Continue Percocet regimen Incentive bedside spirometry to prevent postoperative atelectasis SCDs for DVT prophylaxis, surgical drain has serosanguineous/bloody discharge, will add DVT prophylaxis once cleared from orthopedic Discontinue Bhandari catheter in the morning Status: Acute Additional A&P Information DVT prophylaxis: SCDs Diet: Cardiac Full code Opiate dependence: She has been getting gabapentin, tizanidine, topiramate, duloxetine, for cervicalgia She also had RFA by pain management clinic Consult Attestations Medical Necessity Statement: As per orthopedic Time Spent in Patient Care: (>than 50% of time spent in counselling and/or direct pt care on unit). 35mins Coding Level of Care Code Acute Retail Special Event Associate for Chg Fwd Diagnoses S/P cervical discectomy Z98.890
--- NOTE | 2020-04-25 19:41 | SUR.OPER ---
1805-phoned daughter to let her know procedure was going well and we were getting ready to start closing.
--- NOTE | 2020-04-25 19:46 | SUR.PHASEI ---
1945- ORAL AIRWAY OUT, SAT 97% WITH ROOM AIR. NASAL CANNULA APPLIED AT 2LPM
[2020-04-25 20:34] LABS: Glucose Point of Care 154 mg/dL (70-110)
[2020-04-25] MEDS: lactated ringers 1,000 ML 75 ML IV (20:55)
[2020-04-25] MEDS: topiramate 100 mg Tablet 200 MG PO (20:59)
[2020-04-25] MEDS: HYDROmorphone 1 mg/mL INJ 1 mL IVP (21:18)
--- NOTE | 2020-04-25 21:56 | PC.NURSE ---
Arrival: Pt arrived from PACU via gurney. Moved to the floor bed, sheffield in place. Hemovac X2 coming from under neck brace. Pt is sedated with eyes closed but will answer to her name and mumbles date. Moaning in pain and flailing arms. IV pain medication given by singer songwriter and pt now resting comfortably. Will re-asses for admission questions at a later time.
[2020-04-26] VITALS (8 sets, daily range): BP systolic 135–155; BP diastolic 76–91; PULSE 64–132; RESP 17–20; TEMP 36.5–37.1; O2SAT 92–99
[2020-04-26] MEDS: morphine 4 mg/mL SDV 1 mL 2 MG IVP ×2 (01:10→05:15)
[2020-04-26] MEDS: HYDROcodone-acetaminophen 5-325 mg Tablet PO ×4 (01:11→15:31)
[2020-04-26] MEDS: ketorolac 30 mg/mL INJ IVP (02:48)
[2020-04-26 06:32] LABS: Glucose Point of Care 115 mg/dL (70-110)
[2020-04-26] MEDS: duloxetine 60 mg Capsule PO (06:40)
[2020-04-26 06:46] LABS: Anion Gap 13.1 (5-19); Blood Urea Nitrogen 11 mg/dL (6-20); Calcium 8.4 mg/dL (8.5-10.5); Carbon Dioxide 23 mmol/L (22-29); Chloride 108 mmol/L (98-107); Glomerular Filtration Rate 86.6 mL/min (90-130); Glucose 111 mg/dL (65-115); Osmolality Calculated 290 mOsm/kg (285-295); Potassium 4.1 mmol/L (3.5-5.1); Sodium 140 mmol/L (136-145)
--- NOTE | 2020-04-26 08:08 | PC.NURSE ---
told nurse about high MI
--- NOTE | 2020-04-26 09:03 | P.DS_ITS ---
Discharge Providers Date of Admission: 04/25/20 19:37 Date of Discharge: April 26, 2020 Attending Provider at Admission: Levy Aguillon DO Attending Provider at Discharge: Levy Aguillon DO Primary Care Provider: Ted Willoughby DO Diagnoses at Discharge Discharge Diagnosis (1) S/P cervical discectomy: Status: Acute Reason for Visit Reason for Visit: CERVICAL SPONDYLOSIS W/ MYELOPATHY Hospital Course Hospital Course Patient was admitted to the hospital on 04/25/2020. She had a C3-4 C4-5 ACDF. She also had hardware removal from C5-C7. And she also had a C2-T2 posterior spine fusion. As well as C5-6 and C6-7 laminectomies and partial facetectomies. She tolerated the surgery well this morning she stated that she would like to go home. At this point her pain is controlled I want to get up with physical therapy when she gets up with physical therapy she can be discharged home. Physical Exam Narrative: EXAM NARRATIVE: Patient pain is better controlled this morning. At this point her arms feel good strength 5 out of 5 incisions are clean dry and intact. Drains have minimal output. Urinary Catheter Management^: Bhandari: Cath Placed During This Visit: yes Reason for Continuing Indwelling Catheter: Perioperative Use in Selected Surgeries Urinary Catheter Date of Insertion: 04/25/20 Urinary Catheter Time of Insertion: 13:00 Discharge Data Data Completed and Pending: Completed Studies During Hospitalization Category Date Time Status XR cervical spine 3V* [id number] Routine Exams 04/25/20 18:30 Completed Pending at discharge Category Date Time Status Complete Blood Co unt w/Auto AM LABS Lab 04/27/20 04:00 Ordered Magnesium AM LABS Lab 04/27/20 04:00 Ordered Renal Function Pa hammad AM LABS Lab 04/27/20 04:00 Ordered Labs from last 24 hours 04/26/20 04/26/20 04/25/20 06:25 05:50 20:27 Sodium 140 Potassium 4.1 Chloride 108 H Carbon Dioxide 23 Anion Gap 13.1 BUN 11 Creatinine 0.7 GFR Calculation 86.6 L Glucose 111 POC Glucose 115 H 154 H Calculated Osmolal ity 290 Calcium 8.4 L Blood Type Rho(D) Type Antibody Screen 04/25/20 10:45 Sodium Potassium Chloride Carbon Dioxide Anion Gap BUN Creatinine GFR Calculation Glucose POC Glucose Calculated Osmolal ity Calcium Blood Type O Positive Rho(D) Type Positive Antibody Screen Negative Vitals: Last Vital Signs Temp 97.9 F 04/26/20 08:08 Pulse 132 H 04/26/20 08:08 Resp 17 04/26/20 08:08 BP 135/91 04/26/20 08:08 Pulse Ox 92 04/26/20 08:08 Discharge Plan Discharge Patient Disposition: Home Condition: Stable Prescriptions: New hydrocodone-acetaminophen 5-325 mg tablet 1 - 2 tab PO .Q4-6H PRN (Reason: pain) 7 Days Qty: 60 RF: 0 Continued albuterol sulfate 2.5 mg /3 mL (0.083 %) solution for nebulization 2.5 mg INHALATION PRN RF: 0 acetaminophen [Tylenol 8 Hour] 650 mg tablet extended release 650 mg PO QID RF: 0 Premarin 0.625 mg/gram cream 0.625 mg VAGINAL .twice a week RF: 0 omeprazole 20 mg capsule,delayed release(DR/EC) 20 mg PO DAILY Qty: 30 RF: 0 tizanidine 2 mg tablet 2 mg PO BID PRN (Reason: muscle spasticity) Qty: 60 RF: 0 One-A-Day Women's Complete 18 mg-400 mcg- 25 mcg tablet See Rx Instructions .ROUTE .COMPLEX RF: 0 zinc 50 mg tablet 100 mg PO DAILY RF: 0 vitamin B complex [B Complex-Vitamin B12] Tablet 1 tab PO DAILY RF: 0 gabapentin 800 mg tablet 800 mg PO QID RF: 0 fluticasone propion-salmeterol [Advair Diskus] 250-50 mcg/dose blister with device 1 inh INHALATION BID Qty: 60 RF: 3 albuterol sulfate [Ventolin HFA] 90 mcg/actuation Hfa Aerosol Inhaler 2 puff INHALATION Q4H PRN (Reason: Shortness Of Breath) RF: 0 topiramate 100 mg tablet 200 mg PO BEDTIME RF: 0 duloxetine 60 mg capsule,delayed release(DR/EC) 60 mg PO QAM RF: 0 Folic Acid Otc 2 tab PO DAILY RF: 0 Discharge Orders: Discharge Order (Routine); Ordered 04/26/20 Ordered By: Levy Aguillon Discharge Diet: Advance as tolerated and Usual diet Activity Restrictions/Additional Instructions: Thank you for choosing [facility] for your care! The f ollowing is a list of instructions, from your provider, to follow upon your discharge to ensure you have the optimal recovery from your recent injury or surgery. Anterior Cervical Discectomy and Fusion: What to Expect at Home Your Recovery Follow-up care is a hernandez part of your treatment and safety. Be sure to make and go to all appointments, and call your doctor if you are having problems. If you do not already have a follow-up appointment made, call office in the next 1-3 days to make follow up appointment for 2 weeks at [phone]. It is also a good idea to know your test results and keep a list of the medicines you take. You can expect your neck to feel stiff or sore after surgery. This should improve in the weeks after surgery. But it may take 4 to 6 months for you to get better completely. You may have trouble sitting or standing in one position for very long and may need pain medicine in the weeks after your surgery. It may take 4 to 6 weeks to get back to your usual activities, but it may depend on what kind of surgery you had. Your throat will feel sore and it may be difficult to swallow for the first 3 days after your surgery. As long as you can get liquids down without difficulty, this should slowly improve, otherwise call our office or seek medical attention if it becomes increasingly difficult to get anything down including liquids. Avoid hot liquids for first 3-5 days. Soothing foods/liquids such as jello, pudding, and luke warm soups are recommended until swallowing improves. Staying elevated will also help, it's advised you keep propped up at while sleeping to help reduce the swelling. You may use an ice pack directly on your incision or around it on the front of your neck, using a cloth to protect your skin; and a heating pad to the back of your neck as needed. Do not use over the counter anti-inflammatory medications (Ibuprofen, Motrin, Aleve, Advil, etc) Taking these meds after having a fusion can delay fusion rates, we recommend you avoid them for the first 3 months after your surgery[address] Dr. Aguillon may advise you to work with a physical therapist to strengthen the muscles around your neck and back - this will be discussed at your follow - up appointments. The pain or numbness you were having in your arms before surgery should get better or go away completely. This care sheet gives you a general idea about how long it will take for you to recover. But each person recovers at a different pace. Follow the steps below to get better as quickly as possible. How can you care for yourself at home? Activity ? Rest when you feel tired. Getting enough sleep will help you recover. ? Try to walk each day. Start by walking a little more than you did the day before. Bit by bit, increase the amount you walk. Walking boosts blood flow and helps prevent pneumonia and constipation. Walking may also decrease your muscle soreness after surgery. ? No lifting anything that is more that 5 pounds. This may include heavy grocery bags and milk containers, a heavy briefcase or backpack, cat litter or dog food bags, a child, or a vacuum glove cleaner. ? Avoid strenuous activities, such as bicycle riding, jogging, weightlifting, or aerobic exercise, until your doctor says it is okay. ? Do not drive until your follow-up visit after your surgery, or until your doctor says it isokay. ? Avoid taking long car trips for 2 to 4 weeks after surgery. Your neck may become tired and painful from sitting too long in one position. ? You will probably need to take 4 to 6 weeks off from work. It depends on the type of work you do and how you feel. ? You may have sex as soon as you feel able, but avoid positions that put stress on your neck or cause pain. Diet ? You can eat your normal diet. If your stomach is upset, try bland, low-fat foods like plain rice, broiled chicken, toast, and yogurt ? Drink plenty of fluids. If you have kidney, heart, or liver disease and have to limit fluids, talk with your doctor before you increase the amount of fluids you drink. ? You may notice that your bowel movements are not regular right after your surgery. This is common. Try to avoid constipation and straining with bowel movements. You may want to take a fiber supplement every day. If you have not had a bowel movement after a couple of days, ask your doctor about taking a mild laxative. Medicines ? Take pain medicines exactly as directed. 1. If Dr. Aguillon gave you a prescription medicine for pain, take lt as prescribed. 2. Do not take two or more pain medicines at the same time unless the doctor told you to. Many pain medicines have acetaminophen, which is Tylenol. Too much acetaminophen {Tylenol) can be harmful. 3. If you think your pain pill is making you sick to your stomach: 4. Take your pills after meals (unless your doctor has told you not to). 5. Ask your Dr. for a different pain pill. Incisioncare ? Remove your dressing 48hours after your surgery. Ok to shower and get the incision wet. Do not overtly wash your incision. When done, pad dry, leave open to air thereafter. Avoid creams and ointments directly on your incision. ? Your sutures in the incision will dissolve and fall out on their own. ? Keep the area clean and dry. You may cover it with a gauze bandage if it weeps or rubs against clothing; if you choose to do this, change the dressing everyday. Other instructions ? Use a heating pad, hot water bottle, or gentle massage on your back to reduce stiffness. Avoid putting heat on your incision When should you call for help? ? Call 911 anytime you think you may need emergency care. For example, call if: ? You pass out (lose consciousness). ? You have sudden chest pain and shortness of breath, or you cough upblood. ? You cannot swallow. ? You have severe pain in your neck or back. ? Call your Dr. or seek immediate medical care if: ? You have pain that does not get better after you take pain pills. ? You have loose stitches, or your incision comes open. ? You have blood or fluid draining from the incision. ? You have signs of infection, such as: 1. Increased pain, swelling, warmth, or redness. 2. Red streaks leading from the site. 3. Pus draining from the site. 4. Swollen lymph nodes in your neck or armpits. 5. A fever. ? You have severe pain in your arms. ? You have new or increased weakness or numbness in your arms. ? Watch closely for any changes in your health, and be sure to contact your doctor if: ? You do not have a bowel movement after taking a laxative. Discharge Attestations Time Spent in Discharge Care*: less than 30 min Quality Metrics Clinical Quality Measures During this hospital stay, did patient experience: None Coding Level of Care Code Acute Care Associate for [facility] Fwd Diagnoses S/P cervical discectomy Z98.890
[2020-04-26] MEDS: pantoprazole DR 40 mg Tablet PO (09:08)
[2020-04-26] MEDS: sennosides-docusate Tablet 1 TAB PO (09:08)
[2020-04-26] MEDS: docusate sodium 100 mg Capsule PO (09:08)
--- NOTE | 2020-04-26 10:45 | PC.CHAP ---
Pastoral Care Encounter/Spiritual Assessment Type of Contact [] Declined refrigerated cargo clerk visit [] Patient/Family/Request visit [] Outpatient visit [] Follow-up visit [] Physician referral [] Code/Alert [x] Routine visit [] Staff referral [] Actively dying [] Patient sleeping [] Family support [] [] Out of room [] Palliative care [] [] Receiving care in room [] Pre-surgical visit [] Trauma [] Long length of stay [] ICU visit [] Other: Relational/Emotional Strength [] Patient feels connected with others/family/visitors/staff [] Distress [] Loneliness/isolation [] Abandonment Spirituality of Patient [x] Person of Kristel [] Attends Rastafari of their Kristel [] Believes in Prayer [] Reads Bible or Rastafarian materials [] There are Spiritual issues to be addressed Computer Systems Technology Instructor Interventions [x] Prayer [x] Active listening [] Non-anxious presence [] Spiritual/emotional support [] Crisis/trauma care [] Spiritual counseling [] Bereavement support [] Provided bereavement packet [] Provided Bible/devotional materials [] Provided toy/stuffed animal, coloring book to patient or family member [] Provided Communion [] Anointing/[place] [] Salvation x] Completed spiritual assessment [] Other: Impact on Illness or Injury [] Angry [] Fearful [] Anxious [] Often cries [] Exhaustion [] Unable to work [] Unable to attend presybeterian [] Unable to walk/stand [] Unable to read [] Unable to drive [] Unable to eat/drink [] Unable to sleep [] Unable to be with family [] Patient intubated [] Other: Summary patient not well hurting Time spent with patient 10
--- NOTE | 2020-04-26 12:07 | P.PN_ITS ---
Subjective Subjective: Interval history: Reports pain in the surgical area. Denies any weakness in the arms or legs. No problems with breathing. No chills. No nausea or vomiting. Vitals/I&O/Wt Last Vital Signs Temp 97.8 F 04/26/20 11:57 Pulse 79 04/26/20 11:57 Resp 18 04/26/20 11:57 BP 155/87 04/26/20 11:57 Pulse Ox 95 04/26/20 11:57 04/25/20 04/26/20 04/26/20 22:59 06:59 14:59 Intake Total 1630 / 2680 50 / 2730 120 / 120 Output Total 700 / 700 255 / 955 Balance 930 / 1980 -205 / 1775 120 / 120 Physical Exam Narrative: EXAM NARRATIVE: Awake alert oriented. No acute distress. Mood and affect are appropriate. Skin is warm and dry. Moist extremities. Lungs are clear. No respiratory distress Heart S1, S2, regular Abdomen is soft, nontender, bowel sounds are present Extremities no cyanosis or calf tenderness bilaterally. Urinary Catheter Management^: Bhandari: Cath Placed During This Visit: yes Reason for Continuing Indwelling Catheter: Perioperative Use in Selected Surgeries Urinary Catheter Date of Insertion: 04/25/20 Urinary Catheter Time of Insertion: 13:00 Data : 04/20/20 09:20 04/26/20 05:50 A&P Additional A&P Information Status post cervical decompression and fusion. Overall doing well. Continue pain management. She is okay to go home when cleared by the surgeon. I appreciate the opportunity to help with the management of this patient. Tachycardia. Mostly related to pain. Currently resolved. DVT prophylaxis. Teds and SCDs while in the hospital. Encourage ambulation. History of COPD. Well-controlled currently. Attestations Medical Necessity Statement*: DC Coding Level of Care Code Acute Power Generation Turbine Room Operator for Lucia El
[2020-04-26] MEDS: lactated ringers 1,000 ML 75 ML IV (12:20)
[2020-04-26] MEDS: ondansetron 2 mg/ML SDV 2 mL 4 MG IVP (13:27)
--- NOTE | 2020-04-26 17:21 | PC.NURSE ---
pt iv taken out and intact. pt discharge instructions explained and questions answered. pt taken to surgical services via wheelchair.
== END 2020-04-26 17:25 | disposition home or self-care (01) ==
LOC: MEDSURG 19:37
PROVIDERS: Anesthesiology; Internal Medicine; Admitting Provider Orthopaedic Surgery; PCP Family Medicine; Visit Provider Orthopaedic Surgery
PROC: 0RB30ZZ Excision of Cervical Vertebral Disc, Open Approach (ICD-10-PCS; CPT 22551; principal; 2020-04-25 11:00)
PROC: (CPT 22600; 2020-04-25 11:00)
DX: M47.892 Other spondylosis, cervical region (principal); J44.9 Chronic obstructive pulmonary disease, unspecified; M79.7 Fibromyalgia; F17.210 Nicotine dependence, cigarettes, uncomplicated; M19.90 Unspecified osteoarthritis, unspecified site
CPT/HCPCS: 20930; 20936; 22551; 22552; 22600; 22610; 22614; 22842; 22845; 22853; 22855; 36415; 36416; 72040; 76000; 80048; 82962; 85025; 86850; 86900; 93005; 96361; 96365; 96367; 96374; 96375; 97161; C1713; C9359; G0378; J0131; J0330; J0690; J1100; J1170; J1885; J2250; J2270; J2405; J2704; J3010; J3370; J3490; J3535; J7030; L0174

== ENCOUNTER → 2020-05-01 07:33 | Outpatient (BNVA) | payer MEDICARE, MEDICAID, SELFPAY | PROVIDERS: PCP Family Medicine; Visit Provider Nurse Practitioner Psychiatric/Mental Health | DX: F43.29 Adjustment disorder with other symptoms (principal); F33.41 Major depressive disorder, recurrent, in partial remission | CPT/HCPCS: 99213 ==

== ENCOUNTER 2020-05-03 23:59 | Emergency (ER) | payer MEDICARE, MEDICAID, SELFPAY ==
[2020-05-04 00:41] VITALS: BP 118/87; PULSE 95; RESP 18; TEMP 37.1; O2SAT 99; BMI 26.5
--- NOTE | 2020-05-04 00:49 | ED_ITS ---
HPI - Extremity Problem General: Chief complaint: Extremity Problem,Nontraumatic Stated complaint: SPINAL SURGERY 04.25.20/HAS INFECTION Time Seen by Provider: 05/04/20 00:01 Source: patient Mode of arrival: ambulatory Limitations: no limitations History of Present Illness: HPI Narrative: 55-year-old female who had a cervical discectomy on the . She states she has been having increased pain with some redness and slight drainage from the incision. States she had a temperature of 100.2. Patient was started on Augmentin 2 days ago by her surgeon but is not seen him yet. She states the pain increased tonight and is a 7 out of 10. Denies any vomiting or diarrhea. Denies any worsening improving factors. Associated symptoms: Deny chest pain, fever(s) or rash Review of Systems Const: Denies: fever(s), chills, body aches or change in appetite Eyes: Denies: blurry vision or eye discomfort ENMT: Denies: throat pain or dental pain Card: Denies: chest pain Resp: Denies: dyspnea GI: Denies: abdominal pain, nausea, vomiting or diarrhea : Denies: dysuria Musc: Reports: neck pain Skin/Breast: Denies: rash Neuro: Denies: headache(s) Psych: Denies: depression Leoncio/Lymph: Denies: easy bruising All/Imm: Denies: urticaria PFSH ED PFSH: Medical History Anxiety and depression Anxiety as acute reaction to gross stress Asthma Cervical disc disorder with myelopathy of mid-cervical region Cervical post-laminectomy syndrome Contact with and (suspected) exposure to other viral communicable diseases COPD (chronic obstructive pulmonary disease) Failure, baclofen pump Fibromyalgia History of tobacco use Instability of joint Major depressive disorder, recurrent, in partial remission Smoker Smoking Spondylolisthesis of cervical region Vaginal atrophy Surgical History H/O breast biopsy rt x2 History of bladder surgery History of fusion of cervical spine C5-C7 [facility]; 12/26/2012; [place], [place] History of hysterectomy with oophorectomy History of tonsillectomy S/P appendectomy S/P cholecystectomy Status post insertion of intrathecal pump Pump placed 06/2017 REMOVAL OF BACLOFEN PUMP 01/2019 at [facility] Family History Other Cancer Hypertension Social History Smoking and tobacco status: current every day smoker cigarettes Alcohol intake: never Lives independently: Yes Marital status: Current occupational status: disabled History of recent travel: No Current gender identity: Female Female Reproductive History: Date of last menstrual period: 04/27/85 Physical Exam Const: COMMON NORMALS: no acute distress, patient oriented x3 and healthy appearing HENMT: COMMON NORMALS: normocephalic and atraumatic HEAD & SCALP: normocephalic and atraumatic Eye: COMMON NORMALS: Equal, round and reactive pupils present and EOMs intact bilaterally PUPIL: Yes Equal, round and reactive pupils present Neck/C-Spine: COMMON NORMALS: full ROM and supple OTHER: Posterior incision has some slight erythema to it with no drainage at this time. Slight warmth to touch. Sutures are all intact. Chest: COMMONS NORMALS: normal inspection of the chest and normal palpation of entire chest wall Resp: COMMON NORMALS: normal respiratory effort, No retractions, No use of accessory muscles and clear to auscultation bilaterally AUSCULTATION: clear to auscultation bilaterally Cardio: COMMON NORMALS: regular rate, regular rhythm and No murmurs present (Cardio) RATE: regular rate RHYTHM: regular rhythm GI: COMMON NORMALS: Normal to inspection, nondistended, normoactive bowel sounds present, Soft to palpation, non-tender and no masses PALPATION: Yes Soft to palpation Extremity: COMMON NORMALS: normal to inspection and full ROM Neuro: COMMON NORMALS: patient oriented x3, moves all extremities and no focal motor deficits Psych: COMMON NORMALS: mental status grossly normal, Normal thought process present and cooperative THOUGHT PROCESS: Normal thought process present Skin: COMMON NORMALS: no rashes or lesions noted and no wounds GENERAL SKIN EXAM: no rashes or lesions noted Course Vital Signs: Vital signs: Vital Signs Temperature 97.4 F L 05/04/20 02:55 Pulse Rate 82 05/04/20 02:55 Respiratory Rate 18 05/04/20 02:55 Blood Pressure 126/79 05/04/20 02:55 Pulse Oximetry 97 05/04/20 02:55 MDM - Extremity (Nontraumatic) MDM Narrative: Medical decision making narrative: Patient presents here with slight cellulitis with a fluid collection. Patient did not want to stay in the ER she felt improved and states she will to follow-up with her orthopedic surgeon outpatient. I did attempt to try to call Dr. Aguillon but he is not on- call was unable to get a hold of him. Patient's white count here is normal and she is afebrile. I informed her she needs to follow-up with him in 1 to 2 days return to ER if worsening. She understands agrees to plan. Lab Data: Labs: Lab Results 05/04/20 05/04/20 Range/Units 01:24 01:24 WBC 7.0 (4.0-10.0) 10^3/ uL RBC 2.93 L (4.1-5.3) 10^6/u L Hgb 9.7 L (11.5-15.3) g/dL Hct 29.5 L (37.0-47.0) % MCV 100.7 H (81-99) fL MCH 33.1 (28.0-34.0) pg MCHC 32.9 (30.0-36.0) g/dL RDW 12.6 (12.1-15.1) % Plt Count 384 (130-400) 10^3/c mm MPV 9.4 (7.4-10.4) fL Neut % (Auto) 56.2 % Lymph % (Auto) 32.0 % [place] % (Auto) 6.9 % Eos % (Auto) 3.3 % Baso % (Auto) 0.6 % Neut # (Auto) 3.94 (1.8-7.7) 10^3/u L Lymph # (Auto) 2.2 (0.8-4.8) 10^3/u L [place] # (Auto) 0.5 (0.2-0.9) 10^3/u L Eos # (Auto) 0.2 (0.0-0.8) 10^3/u L Baso # (Auto) 0.0 (0.0-0.1) 10^3/u L Nucleated RBC % (a uto) 0 % Nucleated RBCs # 0.0 /100WBC Sodium 140 (136-145) mmol/L Potassium 3.3 L (3.5-5.1) mmol/L Chloride 105 (98-107) mmol/L Carbon Dioxide 26 (22-29) mmol/L Anion Gap 12.3 (5-19) BUN 11 (6-20) mg/dL Creatinine 0.8 (0.5-0.9) mg/dL GFR Calculation 74.2 L (90-130) mL/min Glucose 98 (65-115) mg/dL Calculated Osmolal ity 289 (285-295) mOsm/k g Calcium 9.4 (8.5-10.5) mg/dL Total Bilirubin 0.2 (0.15-1.2) mg/dL AST 12 (0-32) U/L ALT 24 (0-33) U/L Alkaline Phosphata se 105 (35-105) IU/L Total Protein 6.8 (6.6-8.7) g/dL Albumin 3.9 (3.5-5.2) g/dL Globulin 2.9 (1.3-4.6) g/dL Imaging Data^: ct c spine: Attestation: I personally reviewed and interpreted this imaging study as follows: Radiologist's impression: [address] [place] [address] CT Scan Report Signed Patient: Willie Carson Unit #: [id number] : 1965 Age/Sex: 55 / F ADM Date: 05/03/20 Loc: ER Room/Bed: Attending Dr: Ordering Provider/Ordering MD: Mauricio Beebe MD Date of Service: 05/04/20 Procedure(s): CT cervical spin wo con* [id number] Accession Number(s): [id number] Report Number: [id number] PROCEDURE INFORMATION: Exam: CT Cervical Spine Without Contrast Exam date and time: 05/04/2020 12:53 AM Age: 55 years old Clinical indication: Prior surgery; Surgery date: <1 month; Patient HX: Surgery of c-spine 04/25, infection TECHNIQUE: Imaging protocol: Computed tomography images of the cervical spine without contrast. Radiation optimization: All CT scans at this facility use at least one of these dose optimization techniques: automated exposure control; mA and/or kV adjustment per patient size (includes targeted exams where dose is matched to clinical indication); or iterative reconstruction. COMPARISON: CT cervical spine w con [id number] 04/20/2020 10:45 AM RADIATION DOSE METRICS: Total DLP (mGy-cm): 610.4 FINDINGS: Vertebrae: Surgical hardware seen throughout the cervical spine with laminectomy changes at C5/6/7. Some fluid is seen within the soft tissue posterior midline subcutaneous fat throughout overlying the majority of the cervical spine measuring up to at least 8.9 cm craniocaudal by 2.6 cm AP which may reflect postsurgical fluid/seroma, however, infection of the fluid is not excluded. Soft tissues: See Vertebrae finding. Lungs: Lung apices are normal. CT/CT cervical spin wo con* [id number] IMPRESSION: Surgical hardware seen throughout the cervical spine with laminectomy changes at C5/6/7. Some fluid is seen within the soft tissue posterior midline subcutaneous fat throughout overlying the majority of the cervical spine measuring up to at least 8.9 cm craniocaudal by 2.6 cm AP which may reflect postsurgical fluid/seroma, however, infection of the fluid is not excluded. Negative for bony destruction to suggest osteomyelitis Discharge Plan Discharge Patient Disposition: Home Clinical Impression: Cellulitis, wound, post-operative Condition: Stable Prescriptions: No Action albuterol sulfate 2.5 mg /3 mL (0.083 %) solution for nebulization 2.5 mg INHALATION PRN RF: 0 acetaminophen [Tylenol 8 Hour] 650 mg tablet extended release 650 mg PO QID RF: 0 Premarin 0.625 mg/gram cream 0.625 mg VAGINAL .twice a week RF: 0 omeprazole 20 mg capsule,delayed release(DR/EC) 20 mg PO DAILY Qty: 30 RF: 0 tizanidine 2 mg tablet 2 mg PO BID PRN (Reason: muscle spasticity) Qty: 60 RF: 0 One-A-Day Women's Complete 18 mg-400 mcg- 25 mcg tablet See Rx Instructions .ROUTE .COMPLEX RF: 0 zinc 50 mg tablet 100 mg PO DAILY RF: 0 amoxicillin-pot clavulanate [Augmentin] 500-125 mg tablet 1 tab PO BID Qty: 20 RF: 0 vitamin B complex [B Complex-Vitamin B12] Tablet 1 tab PO DAILY RF: 0 gabapentin 800 mg tablet 800 mg PO QID RF: 0 duloxetine 60 mg capsule,delayed release(DR/EC) 60 mg PO QAM Qty: 30 RF: 2 fluticasone propion-salmeterol [Advair Diskus] 250-50 mcg/dose blister with device 1 inh INHALATION BID Qty: 60 RF: 3 (DME) E0748 Bone Growth Stimulator See Rx Instructions .Route .MEDSUPPLY Qty: 1 RF: 0 (DME) [place] J cervical collar See Rx Instructions .Route .MEDSUPPLY Qty: 1 RF: 0 cyclobenzaprine 5 mg tablet 5 mg PO TID PRN (Reason: muscle spasm) Qty: 30 RF: 0 albuterol sulfate [Ventolin HFA] 90 mcg/actuation Hfa Aerosol Inhaler 2 puff INHALATION Q4H PRN (Reason: Shortness Of Breath) RF: 0 topiramate 100 mg tablet 200 mg PO BEDTIME RF: 0 Folic Acid Otc 2 tab PO DAILY RF: 0 Discharge Orders: Discharge ED (Routine); Ordered 05/04/20 Ordered By: Mauricio Beebe Referrals: Levy Aguillon DO [Physician] - 1-3 days Ted Willoughby DO [Primary Care Provider] - Discharge Diet: Advance as tolerated Discharge Activity: Resume usual activity Patient Instructions: Cellulitis (ED) Coding Level of Care Code ED Rehabilitation Tech for Chg Fwd Exam Comprehensive
[2020-05-04] MEDS: ondansetron 2 mg/ML SDV 2 mL 4 MG IVP (01:29)
[2020-05-04 01:31] LABS: Basophils % 0.6 %; Eosinophils # 0.2 10^3/uL (0.0-0.8); Eosinophils % 3.3 %; Hematocrit 29.5 % (37.0-47.0); Hemoglobin 9.7 g/dL (11.5-15.3); Lymphocytes # 2.2 10^3/uL (0.8-4.8); Mean Corpuscular HGB Conc 32.9 g/dL (30.0-36.0); Mean Corpuscular Hemoglobin 33.1 pg (28.0-34.0); Mean Corpuscular Volume 100.7 fL (81-99); Mean Platelet Volume 9.4 fL (7.4-10.4); Monocytes # 0.5 10^3/uL (0.2-0.9); Monocytes % 6.9 %; Neutrophils # 3.94 10^3/uL (1.8-7.7); Neutrophils % 56.2 %; Nucleated Red Blood Cells % 0 %; Platelet Count 384 10^3/cmm (130-400); Red Blood Count 2.93 10^6/uL (4.1-5.3); Red Cell Distribution Width 12.6 % (12.1-15.1)
[2020-05-04] MEDS: vancomycin 1,000 MG in sodium chloride 0.9% 250 ML 250 MG IV (01:36)
[2020-05-04 01:38] VITALS: RESP 18; O2SAT 97
[2020-05-04] MEDS: morphine 4 mg/mL SDV 1 mL IVP (01:38)
[2020-05-04 01:53] LABS: Alanine Aminotransferase 24 U/L (0-33); Albumin Level 3.9 g/dL (3.5-5.2); Alkaline Phosphatase 105 IU/L (35-105); Anion Gap 12.3 (5-19); Aspartate Amino Transferase 12 U/L (0-32); Blood Urea Nitrogen 11 mg/dL (6-20); Calcium 9.4 mg/dL (8.5-10.5); Carbon Dioxide 26 mmol/L (22-29); Chloride 105 mmol/L (98-107); Creatinine Clr Calc Pharmacy 72.7085; Globulin 2.9 g/dL (1.3-4.6); Glomerular Filtration Rate 74.2 mL/min (90-130); Glucose 98 mg/dL (65-115); Osmolality Calculated 289 mOsm/kg (285-295); Potassium 3.3 mmol/L (3.5-5.1); Sodium 140 mmol/L (136-145); Total Bilirubin 0.2 mg/dL (0.15-1.2); Total Protein 6.8 g/dL (6.6-8.7)
[2020-05-04 02:55] VITALS: BP 126/79; PULSE 82; RESP 18; TEMP 36.3; O2SAT 97
== END 2020-05-04 03:00 | disposition home or self-care (01) ==
PROVIDERS: Emergency Provider Emergency Medicine; PCP Family Medicine
DX: T81.49XA Infection following a procedure, other surgical site, initial encounter (principal); L03.312 Cellulitis of back [any part except buttock and flank]; J44.9 Chronic obstructive pulmonary disease, unspecified; F17.210 Nicotine dependence, cigarettes, uncomplicated
CPT/HCPCS: 72125; 80053; 85025; 96365; 96375; 99283; J2270; J2405; J3370; J7050

== ENCOUNTER → 2020-05-23 09:58 | Outpatient (BNVA) | payer MEDICARE, MEDICAID, SELFPAY | PROVIDERS: PCP Family Medicine; Visit Provider Nurse Practitioner Family | DX: R06.89 Other abnormalities of breathing (principal); R07.1 Chest pain on breathing | CPT/HCPCS: 71046 ==

== ENCOUNTER → 2020-06-07 08:41 | Outpatient (BNVA) | payer MEDICARE, MEDICAID, SELFPAY | PROVIDERS: PCP Family Medicine; Visit Provider Orthopaedic Surgery | DX: Z98.890 Other specified postprocedural states (principal); Z98.1 Arthrodesis status | CPT/HCPCS: 72040 ==

== ENCOUNTER → 2020-06-22 11:42 | Outpatient (BNVA) | payer MEDICARE, MEDICAID, SELFPAY | PROVIDERS: PCP Family Medicine; Visit Provider Nurse Practitioner Family | DX: R30.0 Dysuria (principal) | CPT/HCPCS: 81000 ==

== ENCOUNTER → 2020-06-25 16:02 | Outpatient (BNVA) | payer MEDICARE, MEDICAID, SELFPAY | PROVIDERS: PCP Family Medicine; Visit Provider Nurse Practitioner Family | DX: Z20.2 Contact with and (suspected) exposure to infections with a predominantly sexual mode of transmission (principal); Z01.419 Encounter for gynecological examination (general) (routine) without abnormal findings; Z12.72 Encounter for screening for malignant neoplasm of vagina; Z68.28 Body mass index [BMI] 28.0-28.9, adult | CPT/HCPCS: 87491; 87591; 87661 ==

== ENCOUNTER → 2020-07-19 08:28 | Outpatient (BNVA) | payer MEDICARE, MEDICAID, SELFPAY | PROVIDERS: PCP Family Medicine; Visit Provider Orthopaedic Surgery | DX: M54.12 Radiculopathy, cervical region (principal); M50.020 Cervical disc disorder with myelopathy, mid-cervical region, unspecified level; M43.12 Spondylolisthesis, cervical region | CPT/HCPCS: 72040 ==

== ENCOUNTER 2020-07-24 06:00 | Outpatient (RCR) | payer MEDICARE, MEDICAID, SELFPAY | END 2020-08-06 23:59 | disposition home or self-care (01) | LOC: GPT 06:00 | PROVIDERS: PCP Family Medicine; Referring Provider Orthopaedic Surgery; Visit Provider Orthopaedic Surgery | DX: Z47.89 Encounter for other orthopedic aftercare (principal) | CPT/HCPCS: 97032; 97110; 97162; 97530 ==

== ENCOUNTER → 2020-07-31 08:39 | Outpatient (BNVA) | payer MEDICARE, MEDICAID, SELFPAY | PROVIDERS: PCP Family Medicine; Visit Provider Nurse Practitioner Psychiatric/Mental Health | DX: F43.29 Adjustment disorder with other symptoms (principal); F33.41 Major depressive disorder, recurrent, in partial remission | CPT/HCPCS: 99213 ==

== ENCOUNTER 2020-08-07 06:00 | Outpatient (RCR) | payer MEDICARE, MEDICAID, SELFPAY | END 2020-09-05 23:59 | disposition home or self-care (01) | LOC: GPT 06:00 | PROVIDERS: PCP Family Medicine; Referring Provider Orthopaedic Surgery; Visit Provider Orthopaedic Surgery | DX: Z47.89 Encounter for other orthopedic aftercare (principal) | CPT/HCPCS: 97032; 97110; 97140 ==

== ENCOUNTER → 2020-10-04 12:00 | Outpatient (BNVA) | payer MEDICARE, MEDICAID, SELFPAY | PROVIDERS: PCP Family Medicine; Visit Provider Family Medicine | DX: Z20.822 Contact with and (suspected) exposure to COVID-19 (principal) | CPT/HCPCS: 87635 ==

== ENCOUNTER → 2020-10-23 08:08 | Outpatient (BNVA) | payer MEDICARE, MEDICAID, SELFPAY | PROVIDERS: PCP Family Medicine; Visit Provider Nurse Practitioner Psychiatric/Mental Health | DX: F43.29 Adjustment disorder with other symptoms (principal); F33.41 Major depressive disorder, recurrent, in partial remission | CPT/HCPCS: 99213 ==

== ENCOUNTER → 2021-01-07 11:03 | Outpatient (BNVA) | payer MEDICARE, MEDICAID, SELFPAY | PROVIDERS: PCP Family Medicine; Visit Provider Nurse Practitioner Family | DX: R30.0 Dysuria (principal); R82.90 Unspecified abnormal findings in urine | CPT/HCPCS: 81000; 87077; 87086; 87184 ==

== ENCOUNTER → 2021-01-22 07:58 | Outpatient (BNVA) | payer MEDICARE, MEDICAID, SELFPAY | PROVIDERS: PCP Family Medicine; Visit Provider Nurse Practitioner Psychiatric/Mental Health | DX: F33.41 Major depressive disorder, recurrent, in partial remission (principal) | CPT/HCPCS: 99213 ==

== ENCOUNTER → 2021-02-06 10:47 | Outpatient (BNVA) | payer MEDICARE, MEDICAID, SELFPAY | PROVIDERS: PCP Family Medicine; Visit Provider Nurse Practitioner Family | DX: R31.9 Hematuria, unspecified (principal); E78.1 Pure hyperglyceridemia | CPT/HCPCS: 80053; 80061; 81000; 84443; 85025 ==

== ENCOUNTER → 2021-04-30 07:44 | Outpatient (BNVA) | payer MEDICARE, MEDICAID, SELFPAY | PROVIDERS: PCP Family Medicine; Visit Provider Nurse Practitioner Psychiatric/Mental Health | DX: F33.41 Major depressive disorder, recurrent, in partial remission (principal) | CPT/HCPCS: 99213 ==

== ENCOUNTER → 2021-05-28 14:50 | Outpatient (BNVA) | payer MEDICARE, MEDICAID, SELFPAY | PROVIDERS: PCP Family Medicine; Visit Provider Nurse Practitioner Psychiatric/Mental Health | DX: F33.41 Major depressive disorder, recurrent, in partial remission (principal) | CPT/HCPCS: 99213 ==

== ENCOUNTER → 2021-07-08 09:40 | Outpatient (BNVA) | payer MEDICARE, MEDICAID, SELFPAY | PROVIDERS: PCP Family Medicine; Visit Provider Family Medicine | DX: R30.0 Dysuria (principal) | CPT/HCPCS: 81000 ==

== ENCOUNTER → 2021-08-27 07:37 | Outpatient (BNVA) | payer MEDICARE, MEDICAID, SELFPAY | PROVIDERS: PCP Family Medicine; Visit Provider Nurse Practitioner Psychiatric/Mental Health | DX: F33.41 Major depressive disorder, recurrent, in partial remission (principal); M54.2 Cervicalgia | CPT/HCPCS: 99213 ==